=== PATIENT | female | born 1970 | race Caucasian/White ===

== ENCOUNTER 2017-04-28 10:23 | Inpatient (IN) | payer SELFPAY ==
[2017-04-28] VITALS (16 sets, daily range): BP systolic 92–152; BP diastolic 50–79; PULSE 89–126; RESP 18–35; TEMP 36.9–38; O2SAT 85–98; BMI 30.9; BMI 31.4; BMI 31.5
--- NOTE | 2017-04-28 10:58 | EKG12_ITS ---
Test Reason : SOB CP Blood Pressure : / mmHG Vent. Rate : 122 BPM Atrial Rate : 122 BPM P-R Int : 150 ms QRS Dur : 074 ms QT Int : 298 ms P-R-T Axes : 082 252 063 degrees QTc Int : 424 ms Sinus tachycardia Low voltage QRS (LIMB LEADS) Biatrial enlargement Septal infarct , age undetermined Abnormal ECG Confirmed by BEL MARTINO, ANKUSH ([id number]), senior editor REYMUNDO LOZA ([id number] on 04/30/2017 10:14:41 AM Referred By: BAILEY Confirmed By:ANKUSH STAPLES MD
--- NOTE | 2017-04-28 11:00 | RAD_ITS ---
STUDY: X-RAY CHEST REASON FOR EXAM: Female, 46 years old. Coughing fever. TECHNIQUE: AP and lateral views of the chest. COMPARISON: None. FINDINGS: EKG electrodes are seen. The lungs are clear and expanded. There is no demonstrated pleural abnormality. Normal size heart. Normal mediastinum and marisa. Normal visualized pulmonary arteries. Normal visualized aortic arch and descending thoracic aorta. There are degenerative changes of the visualized thoracic spine. Normal visualized ribs, clavicles, and shoulders. There is no demonstrated abnormality of the visualized soft tissue structures of the upper abdomen. RAD/Chest PA and Lateral IMPRESSION: No acute abnormality is seen. Electronically Signed: Du Amaya MD at 11:23 EST Tel [phone], Service support ,
[2017-04-28] MEDS: Ipratropium/Albuterol Sulfate 3 ML AMPUL.NEB INHALATION ×4 (11:09→21:59)
[2017-04-28] MEDS: Albuterol 2.5 MG/3 ML VIAL.NEB. INHALATION ×2 (11:14→11:36)
[2017-04-28 11:16] LABS: Absolute Lymphocyte Count 0.84 X10^3/ul (0.83-4.51); Basophil# 0.02 X10^3/uL; Basophil% 0.3 % (0-1); Hemoglobin 14.7 g/dl (12.0-15.0); Lymphocyte # 0.84 X10^3/ul (4.0); Lymphocyte % 12.8 % (19-41); Mean Corp Hgb Conc 34.2 g/gl (32-36); Mean Corpuscular Volume 93.7 fL (81-99); Mean Platelet Vol. 10.4 fl (6.2-12.0); Monocyte# 0.68 X10^3/uL; Monocyte% 10.4 % (0-10); Neutrophil # 5.02 X10^3/uL (2.7-7.7); Neutrophil % 76.5 % (47-70); POSITIVE COUNT NO; POSITIVE DIFFERENTIAL NO; POSITIVE MORPHOLOGY NO; Platelet Count 192 K/mm3 (150-450); RBC Distribution Width CV 13.4 % (11.6-14.6); RBC Distribution Width SD 44.7 fl (35.1-43.9); Red Blood Count 4.59 M/mm3 (4.2-5.4); White Blood Count 6.6 K/mm3 (4.4-11.0)
--- NOTE | 2017-04-28 11:26 | CPS ---
PT BACK FROM RADIOLOGY. 6LPM NASAL CANNULA WITH SATURATION 98%. PT DECREASED TO 4 LPM WITH SATURATION 94%. DUONEB X 1 AND ALBUTEROL X1 ADMINISTERED UPON RETURN TO ROOM. BS WHEEZES PRE AND POST.
[2017-04-28] MEDS: 0.9% Normal Saline 1,000 ML 999 ML IV (11:27)
[2017-04-28] MEDS: MethylPREDNISolone 125 MG/2 ML Vial IV (11:27)
[2017-04-28 11:28] LABS: Anion Gap 9 (5-15); BUN 8 mg/dL (7-18); BUN/Creat Ratio 12.9 RATIO (10-20); Calcium,Total 8.7 mg/dL (8.5-10.1); Chloride 98 mmol/L (98-107); Creatinine, Serum 0.62 mg/dL (0.55-1.02); EST Glomerular Filtration Rate 111 mL/min (>60); Est Glom Filt Rate - Afr Amer 134 mL/min (>60); Estimated Creatinine Clearance 98.95 ml/min; Glucose 111 mg/dL (74-106); Sodium Level 131 mmol/L (136-145)
--- NOTE | 2017-04-28 12:13 | ED.VISSUMM ---
- ER Visit Summary Date of Service: 04/28/17 Chief Complaint: Cough, wheezing and shortness of breath. History of Present Illness: The patient is a 46 F smoker with past medical history of cervical cancer which she underwent chemo and radiation. A 3 day history of cough and fever. Fever as high as 103. Is been recently had pneumonia. Prior history of DVT or PE. No travel or surgery. No hemoptysis. No leg pain or swelling. Physical Examination: Middle-aged female. Vital signs stable except is hypoxic without O2 in the mid 80s. Her heart rate 125 and temperature 99.9. HEENT exam unremarkable. Neck nontender no lymphadenopathy. Lungs coarse breath sounds bilaterally. Patient wheezing throughout. He has a diminished in both bases. Heart tachycardic no murmur. Abdomen is soft. Mild tenderness left upper quadrant. Normal bowel sounds no peritoneal signs. No signs of trauma. She states her abdomen is tender secondary in all the coughing she has done. She is moving all 4 extremities. Neurovascular intact. Calves are nontender without edema or cords. Neurologically she is awake and alert without focal motor deficits. Test Results: Chest x-ray portable one view shows no acute abnormality read both myself the radiologist. Normal cardiac silhouette. No infiltrate. EKG sinus tachycardia without any signs of acute HI. White count of 6. H&H 1443. Electrolytes unremarkable and sodium 131. Normal creatinine and normal gap. Troponin normal. Lactic acid 1.0. Emergency Department Course and Treatment: Treated with DuoNeb and Proventil aerosols. 125 Solu-Medrol. On repeat exam she is doing better but still wheezing and still hypoxic without oxygen. She will not be able to be discharged home. I have the hospitalist on page for admission. Influenza study is pending. Treatment Plan: Admission for repeat aerosols and continued steroids. Disposition: Admission Impression: Acute viral URI with bronchospasm and hypoxia This note was generated with [employer] dictation software. It may contain incorrect words, spelling, and punctuation that were not noted in review of the chart prior to signing ED Disposition - Plan for ED Patient: Chief Complaint: Fever Referrals: Joana Esqueda MD [Primary Care Provider] -
--- NOTE | 2017-04-28 12:17 | ED.DCSUM_ITS ---
- ER Visit Summary Date of Service: 04/28/17 Chief Complaint: Cough, wheezing and shortness of breath. History of Present Illness: The patient is a 46 F smoker with past medical history of cervical cancer which she underwent chemo and radiation. A 3 day history of cough and fever. Fever as high as 103. Is been recently had pneumonia. Prior history of DVT or PE. No travel or surgery. No hemoptysis. No leg pain or swelling. Physical Examination: Middle-aged female. Vital signs stable except is hypoxic without O2 in the mid 80s. Her heart rate 125 and temperature 99.9. HEENT exam unremarkable. Neck nontender no lymphadenopathy. Lungs coarse breath sounds bilaterally. Patient wheezing throughout. He has a diminished in both bases. Heart tachycardic no murmur. Abdomen is soft. Mild tenderness left upper quadrant. Normal bowel sounds no peritoneal signs. No signs of trauma. She states her abdomen is tender secondary in all the coughing she has done. She is moving all 4 extremities. Neurovascular intact. Calves are nontender without edema or cords. Neurologically she is awake and alert without focal motor deficits. Test Results: Chest x-ray portable one view shows no acute abnormality read both myself the radiologist. Normal cardiac silhouette. No infiltrate. EKG sinus tachycardia without any signs of acute ND. White count of 6. H&H 1443. Electrolytes unremarkable and sodium 131. Normal creatinine and normal gap. Troponin normal. Lactic acid 1.0. Emergency Department Course and Treatment: Treated with DuoNeb and Proventil aerosols. 125 Solu-Medrol. On repeat exam she is doing better but still wheezing and still hypoxic without oxygen. She will not be able to be discharged home. I have the hospitalist on page for admission. Influenza study is pending. Treatment Plan: Admission for repeat aerosols and continued steroids. Disposition: Admission Impression: Acute viral URI with bronchospasm and hypoxia This note was generated with [employer] dictation software. It may contain incorrect words, spelling, and punctuation that were not noted in review of the chart prior to signing ED Disposition - Plan for ED Patient: Chief Complaint: Fever Referrals: Joana Esqueda MD [Primary Care Provider] -
[2017-04-28] MEDS: Acetaminophen 500 MG Tablet 1000 MG PO (12:42)
--- NOTE | 2017-04-28 12:59 | HP.PCM_ITS ---
Problem List (1) COPD exacerbation Status: Acute (2) URI (upper respiratory infection) Status: Acute (3) Chronic nicotine dependence Status: Chronic (4) CA cervix Status: Chronic History of Present Illness Date of Admission: 04/28/17 Chief Complaint: Shortness of breath and fever for 3 days The patient is a 46 year old F with history of chronic smoker came to ER with progressive worsening of shortness of breath, cough, wheezing and fever 103 Fahrenheit at home. Patient's is recently diagnosed of pneumonia last [place], just completed 3 days of Zithromax is feeling better. Patient also has grand child which is suffering from flu and has been exposed to her and the grandchild. Patient has been smoking since her 24 years of age about a pack per day. In ED, she was found tachycardic, heart rate 126/min, T-max 100.4 Fahrenheit, respiratory rate 28/min and hypoxic 94% on 4 L of oxygen. Chest x-ray reported as normal; lungs are clear and expanded. [] Past Medical History Past Medical History (Chronic Problems): Chronic Problems Chronic nicotine dependence (Chronic) CA cervix (Chronic) Allergies silicone Adverse Reaction (Verified 01/02/15 06:36) Nausea/Vom/Diarrhea Home Medications: Ambulatory Orders Medication Instructions Recorded NK [NK] 04/28/17 Smoking Status: Current every day smoker - *Family History Paternal History Items: No pertinent history Review of Systems Constitutional: Reports: Anorexia, Chills, Fever, Malaise, Weakness HEENT: Reports: Sinus Congestion, Sore Throat. Denies: Head Aches, Sinus Drainage Cardiovascular: Denies: Chest Pain, Palpitations Respiratory: Reports: Cough, Shortness of Breath, Shortness of breath at rest. Denies: Sputum production Gastrointestinal: Denies: Abdominal Pain, Nausea, Vomiting Genitourinary: Denies: Dysuria Musculoskeletal: Denies: Joint Pain, Joint Tenderness Skin: Denies: Rash, Wounds Neurological: Denies: Numbness, Tingling, Focal weakness Psychiatric: Denies: Anxiety, Depression, Homicidal Ideations, Suicidal Ideations Hematologic/ Lymphatic: Denies: Easy Bruising, Easy Bleeding VTE Information - Inpt Only VTE Present on Admission: No VTE Mechan Device Prophylaxis: SCD's VTE Pharm Prophylaxis ordered?: Yes Patient Problems: Active and Suspected Problems COPD exacerbation (Acute) URI (upper respiratory infection) (Acute) - Physical Exam General: Alert, Oriented x3, Cooperative, - - very sick HEENT: Atraumatic, PERRLA, EOMI, Normocephalic Oral: Dry Mucosa Neck: Supple, No JVD, Negative Carotid Bruits Lungs: Diminished, Rhonchi, Short of Breath, Tachypneic, Using Accessory Muscles , Wheezes Cardiovascular: Regular Rhythm, Normal S1, Normal S2, No murmurs, Tachycardic Abdomen: Bowel Sounds Present, Soft, Non Tender, Non-Distended Extremities: No edema, Capillary Refill Less than 3 Seconds Skin: No rashes, No breakdown Musculoskeletal: No Tenderness to Palpation of Joints or Extremities Neurological: Cranial nerves II-XII grossly intact Psych/Mental Status: Normal Affect, Appropriate Vital Signs Temp Pulse Resp BP Pulse Ox 100.4 F H 116 H 29 H 118/75 93 04/28/17 12:34 04/28/17 12:34 04/28/17 12:34 04/28/17 12:34 04/28/17 12:34 Assessment/Plan Active and Suspected Problems COPD exacerbation (Acute) URI (upper respiratory infection) (Acute) The patient is a 46 year old F with history of chronic smoker came to ER with progressive worsening of shortness of breath, cough, wheezing and fever 103 Fahrenheit at home. Patient's is recently diagnosed of pneumonia last Wednesday, just completed 3 days of Zithromax is feeling better. Patient also has grand child which is suffering from flu and has been exposed to her and the grandchild. Patient has been smoking since her 24 years of age about a pack per day. In ED, she was found tachycardic, heart rate 126/min, T-max 100.4 Fahrenheit, respiratory rate 28/min and hypoxic 94% on 4 L of oxygen. Chest x-ray reported as normal; lungs are clear and expanded. 1. SIRS (tachycardia, tachypnea, hypoxia) most rarely from sepsis due to clinical pneumonia or URI/acute tracheobronchitis: The patient is being admitted on the regular floor. Started empirically on IV Rocephin and Zithromax. Even though, nasal swab for influenza is negative but its sensitivity and specifically low and clinical suspicion is high because of exposure, therefore started on Tamiflu. Strep throat culture and respiratory panel ordered. Blood cultures ?2 and sputum culture ordered. 2. Acute hypoxic respiratory failure most probably from COPD exacerbation/ clinical pneumonia: Oxygen therapy. ABG ordered for baseline PCO2. 3. Most probably undiagnosed COPD/emphysema with acute exacerbation due to acute bronchitis: On bronchodilator, IV Solu-Medrol, oxygen therapy, incentive spirometry and chest physiotherapy. 4. Chronic smoker: On nicotine patch. Smoking cessation counseling done. 5. Ca cervix status post chemoradiation: Patient completed chemotherapy and radiation and is scheduled for surgery. Mild obesity, grade 1: Weight loss counseling done. DVT prophylaxis on Lovenox and bilateral SCDs. Microbiology Past 72 Hours 04/28/17 11:40 Mucosa - Nose Influenza Types A,B Direct FA (MARTIN) - Final Laboratory Results 04/28/17 10:50: WBC 6.6, RBC 4.59, Hgb 14.7, Hct 43.0, MCV 93.7, MCH 32.0, MCHC 34.2, RDW 13.4, RDW Differential 44.7 H, Plt Count 192, MPV 10.4, Immature Gran % (Auto) 0.000, Neut % (Auto) 76.5 H, Lymph % (Auto) 12.8 L, [place] % (Auto) 10.4 H, Eos % (Auto) 0.0, Baso % (Auto) 0.3, Absolute Neuts (auto) 5.0, Absolute Lymphs (auto) 0.84, Total Counted Not Reportable 04/28/17 10:50: Sodium 131 L, Potassium 4.0, Chloride 98, Carbon Dioxide 24.0, Anion Gap 9, BUN 8, Creatinine 0.62, Estim Creat Clear Calc 98.95, Est GFR (MDRD ) Af Amer 134, Est GFR (MDRD) Non-Af 111, BUN/Creatinine Ratio 12.9, Glucose 111 H, Calcium 8.7, Troponin I < 0.02 04/28/17 10:50: Lactic Acid 1.0 Clinical Impression(s) from Imaging Studies Chest X-Ray 04/28/17 11:00 IMPRESSION: No acute abnormality is seen. Electronically Signed: Du Amaya MD at 11:23 EST Tel [phone], Service support , Code Visit Inpatient E&M: [id number] Init Hosp L3
[2017-04-28 15:46] LABS: Base Excess -2 mmol/L (-2 to +2); Bicarbonate 23.7 mmol/L (22-26); Blood Gas Specimen Type ART; O2 Delivery Device Nasal Can; PO2 71 mmHG (75-100); SITE R Radial; SO2 94 % (95-99); Time Given 1545; Total Carbon Dioxide 25 mmol/L; pCO2 40.3 mmHg (35-45); pH 7.38 (7.35-7.45)
[2017-04-28] MEDS: Ceftriaxone 1 GM/50 ML BAG IV (16:00)
[2017-04-28] MEDS: 0.9% Normal Saline 1,000 ML 75 ML IV (16:03)
[2017-04-28] MEDS: Benzonatate 100 MG Capsule 200 MG PO ×2 (16:04→22:09)
[2017-04-28] MEDS: Oseltamivir Phosphate 75 MG Capsule PO ×2 (16:04→22:09)
[2017-04-28] MEDS: Enoxaparin 40 MG/0.4 ML Syringe SC (16:04)
[2017-04-28 16:23] LABS: BNP,B-Type NATRIURETIC PEPTIDE 14.6 pg/mL (0-100)
[2017-04-28] MEDS: guaiFENesin 1,200 MG Tablet 1200 MG PO (22:08)
[2017-04-29] VITALS (15 sets, daily range): BP systolic 93–117; BP diastolic 54–75; PULSE 72–103; RESP 18–20; TEMP 36.2–37.1; O2SAT 93–96
[2017-04-29] MEDS: Benzonatate 100 MG Capsule 200 MG PO ×3 (05:19→21:51)
[2017-04-29] MEDS: Enoxaparin 40 MG/0.4 ML Syringe SC (05:20)
[2017-04-29] MEDS: 0.9% Normal Saline 1,000 ML 75 ML IV (05:20)
[2017-04-29] MEDS: Albuterol 2.5 MG/3 ML VIAL.NEB. INHALATION (05:28)
[2017-04-29 06:08] LABS: Absolute Lymphocyte Count 0.88 X10^3/ul (0.83-4.51); Absolute Neutrophil Count 7.1 X10^3/uL (2.0-7.7); Basophil# 0.01 X10^3/uL; Basophil% 0.1 % (0-1); Hematocrit 39.5 % (37-47); Hemoglobin 13.5 g/dl (12.0-15.0); Lymphocyte # 0.88 X10^3/ul (4.0); Lymphocyte % 10.5 % (19-41); Mean Corp Hgb Conc 34.2 g/gl (32-36); Mean Corpuscular Hgb 32.3 pg (27.0-32.0); Mean Corpuscular Volume 94.5 fL (81-99); Mean Platelet Vol. 10.2 fl (6.2-12.0); Monocyte# 0.38 X10^3/uL; Monocyte% 4.5 % (0-10); Neutrophil # 7.12 X10^3/uL (2.7-7.7); Neutrophil % 84.8 % (47-70); Platelet Count 186 K/mm3 (150-450); RBC Distribution Width CV 13.3 % (11.6-14.6); RBC Distribution Width SD 44.7 fl (35.1-43.9); Red Blood Count 4.18 M/mm3 (4.2-5.4); White Blood Count 8.4 K/mm3 (4.4-11.0)
[2017-04-29 06:09] LABS: POSITIVE COUNT NO; POSITIVE DIFFERENTIAL NO; POSITIVE MORPHOLOGY NO
[2017-04-29 06:33] LABS: ALB/GLOB Ratio 0.9 RATIO (0.9-2.4); AST(SGOT) 20 U/L (15-37); Alanine Aminotransfer ALT/SGPT 24 U/L (13-56); Albumin, Serum 3.4 g/dL (3.2-5.0); Alkaline Phosphatase 74 U/L (45-117); Anion Gap 7 (5-15); BUN 9 mg/dL (7-18); BUN/Creat Ratio 15.1 RATIO (10-20); Chloride 104 mmol/L (98-107); EST Glomerular Filtration Rate 116 mL/min (>60); Est Glom Filt Rate - Afr Amer 140 mL/min (>60); Estimated Creatinine Clearance 102.25 ml/min; Globulin 3.6 g/dL (2.2-4.2); Glucose 141 mg/dL (74-106); Potassium 4.5 mmol/L (3.5-5.1); Sodium Level 138 mmol/L (136-145)
[2017-04-29] MEDS: Ipratropium/Albuterol Sulfate 3 ML AMPUL.NEB INHALATION ×4 (06:48→20:20)
--- NOTE | 2017-04-29 09:20 | PCM.PN.HOSP ---
Patient Problems: Active and Suspected Problems COPD exacerbation (Acute) URI (upper respiratory infection) (Acute) Subjective: Patient is short of breath, wheezing and diarrhea. She is feeling better than yesterday. She is also tearful and I think she has significant amount of anxiety. She also has a history of on and off diarrhea with abdominal cramps, I think she has IBS. Stool for leucocytes and C. difficile ordered. Vitals/I&O's: Vital Signs Temp Pulse Resp BP Pulse Ox 98.8 F 86 20 H 109/69 93 04/29/17 06:54 04/29/17 06:54 04/29/17 06:54 04/29/17 06:54 04/29/17 06:54 Oxygen Flow Rate 4 Oxygen Delivery Method Nasal Cannula Weight: 183 lb 6.793 oz Body Mass Index (BMI) 31.4 Intake and Output for Last 24 Hours 04/27/17 04/28/17 04/29/17 23:59 23:59 23:59 Intake Total 1500 / 1500 Output Total 400 / 400 Balance 1100 / 1100 General: Alert, Oriented x3, Cooperative HEENT: Atraumatic, PERRLA, EOMI, Normocephalic Oral: Dry Mucosa Neck: Supple, No JVD, Negative Carotid Bruits Lungs: No rales, Diminished, Rhonchi, Short of Breath Cardiovascular: Regular rate, Regular Rhythm, Normal S1, Normal S2, No murmurs Abdomen: Bowel Sounds Present, Soft, Non Tender, Non-Distended Extremities: No edema, Capillary Refill Less than 3 Seconds Skin: No rashes, No breakdown Musculoskeletal: No Tenderness to Palpation of Joints or Extremities Neurological: Cranial nerves II-XII grossly intact Psych/Mental Status: Normal Affect, Appropriate Microbiology Past 72 Hours 04/29/17 06:10 Urine, Clean Catch Streptococcus pneumoniae Antigen (M - Final 04/28/17 22:20 Mucosa - Throat Group A Streptococcus Rapid Screen - Preliminary Laboratory Results 04/28/17 15:41: Specimen Type ART, Sample Site R Radial, pH 7.38, Bicarbonate Actual 23.7, POC Total CO2 25, Base Excess -2, O2 Saturation 94 L, ABG pCO2 40.3, ABG pO2 71 L, O2 Delivery Device Nasal Can, Liter Flow 4.0, Blood Gas Notified Whom ALFA MARTINO, Blood Gas Notified Time 1540 04/29/17 05:50: WBC 8.4, RBC 4.18 L, Hgb 13.5, Hct 39.5, MCV 94.5, MCH 32.3 H, MCHC 34.2, RDW 13.3, RDW Differential 44.7 H, Plt Count 186, MPV 10.2, Immature Gran % (Auto) 0.100, Neut % (Auto) 84.8 H, Lymph % (Auto) 10.5 L, [place] % (Auto) 4.5, Eos % (Auto) 0.0, Baso % (Auto) 0.1, Absolute Neuts (auto) 7.1, Absolute Lymphs (auto) 0.88, Total Counted Not Reportable 04/29/17 05:50: Sodium 138, Potassium 4.5, Chloride 104, Carbon Dioxide 27.0, Anion Gap 7, BUN 9, Creatinine 0.60, Estim Creat Clear Calc 102.25, Est GFR (MDRD) Af Amer 140, Est GFR (MDRD) Non-Af 116, BUN/Creatinine Ratio 15.1, Glucose 141 H, Calcium 9.0, Total Bilirubin 0.40, AST 20, ALT 24, Alkaline Phosphatase 74, Total Protein 7.0, Albumin 3.4, Globulin 3.6, Albumin/Globulin Ratio 0.9 Current Medications Acetaminophen (Tylenol) 650 mg PO Q6H PRN PRN PRN Reason: Mild Pain (scale 0-3)/T>100.7 Al Hydroxide/Mg Hydroxide (Mylanta Ii) 30 ml PO Q6H PRN PRN PRN Reason: Gastric Burning Albuterol Sulfate (Ventolin Aerosols) 2.5 mg INHALATION Q2H PRN PRN PRN Reason: SHORTNESS OF BREATH Last Admin: 04/29/17 05:28 Dose: 2.5 mg Albuterol/Ipratropium (Duoneb) 3 ml INHALATION Q4HWA.RT DELIA Last Admin: 04/29/17 06:48 Dose: 3 ml Benzonatate (Tessalon Perle) 200 mg PO TID [facility] Last Admin: 04/29/17 05:19 Dose: 200 mg Bisacodyl (Dulcolax) 10 mg RECTAL DAILY PRN PRN PRN Reason: Constipation Docusate Sodium (Colace) 200 mg PO BID PRN PRN PRN Reason: Constipation Enoxaparin Sodium (Lovenox) 40 mg SC DAILY@0600 [facility] Last Admin: 04/29/17 05:20 Dose: 40 mg Guaifenesin (Mucinex) 1,200 mg PO BID [facility] Last Admin: 04/28/17 22:08 Dose: 1,200 mg Sodium Chloride () 1,000 mls @ 75 mls/hr IV .[id number] [facility] Last Admin: 04/29/17 05:20 Dose: 75 mls/hr Azithromycin 500 mg/ Dextrose 255 mls @ 250 mls/hr IV Q24 [facility] Stop: 04/30/17 11:02 Last Admin: 04/28/17 17:21 Dose: 250 mls/hr Ceftriaxone Sodium (Rocephin) 1 gm in 50 mls @ 100 mls/hr IV Q24 [facility] Last Admin: 04/28/17 16:00 Dose: 100 mls/hr Methylprednisolone (Solu-Medrol) 40 mg IV Q8 [facility] Last Admin: 04/29/17 05:20 Dose: 40 mg Morphine Sulfate (Morphine) 1 - 2 mg IV Q4H PRN PRN PRN Reason: SEVERE PAIN (6-10/10) Nicotine (Nicoderm Cq (Pbkc)) 21 mg TRANSDERM. DAILY [facility] Last Admin: 04/28/17 16:21 Dose: 21 mg Ondansetron HCl (Zofran) 4 mg IV Q8H PRN PRN PRN Reason: Nausea Oseltamivir Phosphate (Tamiflu) 75 mg PO BID [facility] Stop: 05/02/17 22:01 Last Admin: 04/28/17 22:09 Dose: 75 mg Oxycodone HCl (Oxyir) 5 mg PO Q4H PRN PRN PRN Reason: Moderate Pain (pain scale 4-5) Sodium Chloride () 5 - 30 ml IV UD PRN PRN Reason: SALINE FLUSH Zolpidem Tartrate (Ambien (Generic)) 5 mg PO QHS PRN PRN PRN Reason: INSOMNIA Assessment/Plan Active and Suspected Problems COPD exacerbation (Acute) URI (upper respiratory infection) (Acute) The patient is a 46 year old F with history of chronic smoker came to ER with progressive worsening of shortness of breath, cough, wheezing and fever 103 Fahrenheit at home. Patient's is recently diagnosed of pneumonia last Wednesday, just completed 3 days of Zithromax is feeling better. Patient also has grand child which is suffering from flu and has been exposed to her and the grandchild. Patient has been smoking since her 24 years of age about a pack per day. In ED, she was found tachycardic, heart rate 126/min, T-max 100.4 Fahrenheit, respiratory rate 28/min and hypoxic 94% on 4 L of oxygen. Chest x-ray reported as normal; lungs are clear and expanded. 1. SIRS (tachycardia, tachypnea, hypoxia) most probably from sepsis due to clinical pneumonia or URI/acute tracheobronchitis: The patient is being admitted on the regular floor. Started empirically on IV Rocephin and Zithromax. Even though, nasal swab for influenza is negative but its sensitivity and specifically low and clinical suspicion is high because of exposure, therefore started on Tamiflu. Strep throat screen is negative but respiratory panel is positive of influenza A, subtype H1. Blood cultures ?2 and sputum culture ordered. Chest x-ray PA and lateral ordered for tomorrow. 2. Acute hypoxic respiratory failure most probably from COPD exacerbation/clinical pneumonia: Oxygen therapy. ABG ordered for baseline PCO2. 3. Most probably undiagnosed COPD/emphysema with acute exacerbation due to acute bronchitis: On bronchodilator, IV Solu-Medrol, oxygen therapy, incentive spirometry and chest physiotherapy. 4. Chronic smoker: On nicotine patch. Smoking cessation counseling done. Anxiety and panic attack with mild withdrawal from chronic nicotine dependence on nicotine patch. Xanax 0.5 mg twice daily as needed Alteration of bowel habit, diarrhea, possible IBS: Stool for C. difficile and leukocytes ordered as the patient is on antibiotic too. 5. Ca cervix status post chemoradiation: Patient completed chemotherapy and radiation and is scheduled for surgery. Mild obesity, grade 1: Weight loss counseling done. DVT prophylaxis on Lovenox and bilateral SCDs. Clinical Impression(s) from Imaging Studies Chest X-Ray 04/28/17 11:00 IMPRESSION: No acute abnormality is seen. Electronically Signed: Du Amaya MD at 11:23 EST Tel [phone], Service support , Microbiology Past 72 Hours 04/28/17 22:20 Mucosa - Throat Group A Streptococcus Rapid Screen - Preliminary 04/28/17 15:20 Mucosa - Nose Respiratory Panel (PCR) - Final Influenza A (Subtype H1) 04/29/17 06:10 Urine, Clean Catch Streptococcus pneumoniae Antigen (M - Final 04/28/17 11:40 Mucosa - Nose Influenza Types A,B Direct FA (MARTIN) - Final Laboratory Results 04/28/17 10:50: B-Natriuretic Peptide 14.6 04/28/17 15:41: Specimen Type ART, Sample Site R Radial, pH 7.38, Bicarbonate Actual 23.7, POC Total CO2 25, Base Excess -2, O2 Saturation 94 L, ABG pCO2 40.3, ABG pO2 71 L, O2 Delivery Device Nasal Can, Liter Flow 4.0, Blood Gas Notified Whom HOSP , Blood Gas Notified Time 1545 04/29/17 05:50: WBC 8.4, RBC 4.18 L, Hgb 13.5, Hct 39.5, MCV 94.5, MCH 32.3 H, MCHC 34.2, RDW 13.3, RDW Differential 44.7 H, Plt Count 186, MPV 10.2, Immature Gran % (Auto) 0.100, Neut % (Auto) 84.8 H, Lymph % (Auto) 10.5 L, [place] % (Auto) 4.5, Eos % (Auto) 0.0, Baso % (Auto) 0.1, Absolute Neuts (auto) 7.1, Absolute Lymphs (auto) 0.88, Total Counted Not Reportable 04/29/17 05:50: Sodium 138, Potassium 4.5, Chloride 104, Carbon Dioxide 27.0, Anion Gap 7, BUN 9, Creatinine 0.60, Estim Creat Clear Calc 102.25, Est GFR (MDRD) Af Amer 140, Est GFR (MDRD) Non-Af 116, BUN/Creatinine Ratio 15.1, Glucose 141 H, Calcium 9.0, Total Bilirubin 0.40, AST 20, ALT 24, Alkaline Phosphatase 74, Total Protein 7.0, Albumin 3.4, Globulin 3.6, Albumin/Globulin Ratio 0.9 Code Visit Inpatient E&M: 72827 Subs Hosp L3
--- NOTE | 2017-04-29 09:23 | PN_ITS ---
Patient Problems: Active and Suspected Problems COPD exacerbation (Acute) URI (upper respiratory infection) (Acute) Subjective: Patient is short of breath, wheezing and diarrhea. She is feeling better than yesterday. She is also tearful and I think she has significant amount of anxiety. She also has a history of on and off diarrhea with abdominal cramps, I think she has IBS. Stool for leucocytes and C. difficile ordered. Vitals/I&O's: Vital Signs Temp Pulse Resp BP Pulse Ox 98.8 F 86 20 H 109/69 93 04/29/17 06:54 04/29/17 06:54 04/29/17 06:54 04/29/17 06:54 04/29/17 06:54 Oxygen Flow Rate 4 Oxygen Delivery Method Nasal Cannula Weight: 183 lb 6.793 oz Body Mass Index (BMI) 31.4 Intake and Output for Last 24 Hours 04/27/17 04/28/17 04/29/17 23:59 23:59 23:59 Intake Total 1500 / 1500 Output Total 400 / 400 Balance 1100 / 1100 General: Alert, Oriented x3, Cooperative HEENT: Atraumatic, PERRLA, EOMI, Normocephalic Oral: Dry Mucosa Neck: Supple, No JVD, Negative Carotid Bruits Lungs: No rales, Diminished, Rhonchi, Short of Breath Cardiovascular: Regular rate, Regular Rhythm, Normal S1, Normal S2, No murmurs Abdomen: Bowel Sounds Present, Soft, Non Tender, Non-Distended Extremities: No edema, Capillary Refill Less than 3 Seconds Skin: No rashes, No breakdown Musculoskeletal: No Tenderness to Palpation of Joints or Extremities Neurological: Cranial nerves II-XII grossly intact Psych/Mental Status: Normal Affect, Appropriate Microbiology Past 72 Hours 04/29/17 06:10 Urine, Clean Catch Streptococcus pneumoniae Antigen (M - Final 04/28/17 22:20 Mucosa - Throat Group A Streptococcus Rapid Screen - Preliminary Laboratory Results 04/28/17 15:41: Specimen Type ART, Sample Site R Radial, pH 7.38, Bicarbonate Actual 23.7, POC Total CO2 25, Base Excess -2, O2 Saturation 94 L, ABG pCO2 40.3 , ABG pO2 71 L, O2 Delivery Device Nasal Can, Liter Flow 4.0, Blood Gas Notified Whom ALFA MARTINO, Blood Gas Notified Time 1543 04/29/17 05:50: WBC 8.4, RBC 4.18 L, Hgb 13.5, Hct 39.5, MCV 94.5, MCH 32.3 H, MCHC 34.2, RDW 13.3, RDW Differential 44.7 H, Plt Count 186, MPV 10.2, Immature Gran % (Auto) 0.100, Neut % (Auto) 84.8 H, Lymph % (Auto) 10.5 L, [place] % (Auto) 4.5, Eos % (Auto) 0.0, Baso % (Auto) 0.1, Absolute Neuts (auto) 7.1, Absolute Lymphs (auto) 0.88, Total Counted Not Reportable 04/29/17 05:50: Sodium 138, Potassium 4.5, Chloride 104, Carbon Dioxide 27.0, Anion Gap 7, BUN 9, Creatinine 0.60, Estim Creat Clear Calc 102.25, Est GFR ( MDRD) Af Amer 140, Est GFR (MDRD) Non-Af 116, BUN/Creatinine Ratio 15.1, Glucose 141 H, Calcium 9.0, Total Bilirubin 0.40, AST 20, ALT 24, Alkaline Phosphatase 74, Total Protein 7.0, Albumin 3.4, Globulin 3.6, Albumin/Globulin Ratio 0.9 Current Medications Acetaminophen (Tylenol) 650 mg PO Q6H PRN PRN PRN Reason: Mild Pain (scale 0-3)/T>100.7 Al Hydroxide/Mg Hydroxide (Mylanta Ii) 30 ml PO Q6H PRN PRN PRN Reason: Gastric Burning Albuterol Sulfate (Ventolin Aerosols) 2.5 mg INHALATION Q2H PRN PRN PRN Reason: SHORTNESS OF BREATH Last Admin: 04/29/17 05:28 Dose: 2.5 mg Albuterol/Ipratropium (Duoneb) 3 ml INHALATION Q4HWA.RT [facility] Last Admin: 04/29/17 06:48 Dose: 3 ml Benzonatate (Tessalon Perle) 200 mg PO TID [facility] Last Admin: 04/29/17 05:19 Dose: 200 mg Bisacodyl (Dulcolax) 10 mg RECTAL DAILY PRN PRN PRN Reason: Constipation Docusate Sodium (Colace) 200 mg PO BID PRN PRN PRN Reason: Constipation Enoxaparin Sodium (Lovenox) 40 mg SC DAILY@0600 [facility] Last Admin: 04/29/17 05:20 Dose: 40 mg Guaifenesin (Mucinex) 1,200 mg PO BID [facility] Last Admin: 04/28/17 22:08 Dose: 1,200 mg Sodium Chloride () 1,000 mls @ 75 mls/hr IV .[id number] [facility] Last Admin: 04/29/17 05:20 Dose: 75 mls/hr Azithromycin 500 mg/ Dextrose 255 mls @ 250 mls/hr IV Q24 [facility] Stop: 04/30/17 11:02 Last Admin: 04/28/17 17:21 Dose: 250 mls/hr Ceftriaxone Sodium (Rocephin) 1 gm in 50 mls @ 100 mls/hr IV Q24 [facility] Last Admin: 04/28/17 16:00 Dose: 100 mls/hr Methylprednisolone (Solu-Medrol) 40 mg IV Q8 [facility] Last Admin: 04/29/17 05:20 Dose: 40 mg Morphine Sulfate (Morphine) 1 - 2 mg IV Q4H PRN PRN PRN Reason: SEVERE PAIN (6-10/10) Nicotine (Nicoderm Cq (Pbkc)) 21 mg TRANSDERM. DAILY [facility] Last Admin: 04/28/17 16:21 Dose: 21 mg Ondansetron HCl (Zofran) 4 mg IV Q8H PRN PRN PRN Reason: Nausea Oseltamivir Phosphate (Tamiflu) 75 mg PO BID [facility] Stop: 05/02/17 22:01 Last Admin: 04/28/17 22:09 Dose: 75 mg Oxycodone HCl (Oxyir) 5 mg PO Q4H PRN PRN PRN Reason: Moderate Pain (pain scale 4-5) Sodium Chloride () 5 - 30 ml IV UD PRN PRN Reason: SALINE FLUSH Zolpidem Tartrate (Ambien (Generic)) 5 mg PO QHS PRN PRN PRN Reason: INSOMNIA Assessment/Plan Active and Suspected Problems COPD exacerbation (Acute) URI (upper respiratory infection) (Acute) The patient is a 46 year old F with history of chronic smoker came to ER with progressive worsening of shortness of breath, cough, wheezing and fever 103 Fahrenheit at home. Patient's is recently diagnosed of pneumonia last Wednesday, just completed 3 days of Zithromax is feeling better. Patient also has grand child which is suffering from flu and has been exposed to her and the grandchild. Patient has been smoking since her 24 years of age about a pack per day. In ED, she was found tachycardic, heart rate 126/min, T-max 100.4 Fahrenheit, respiratory rate 28/min and hypoxic 94% on 4 L of oxygen. Chest x-ray reported as normal; lungs are clear and expanded. 1. SIRS (tachycardia, tachypnea, hypoxia) most probably from sepsis due to clinical pneumonia or URI/acute tracheobronchitis: The patient is being admitted on the regular floor. Started empirically on IV Rocephin and Zithromax. Even though, nasal swab for influenza is negative but its sensitivity and specifically low and clinical suspicion is high because of exposure, therefore started on Tamiflu. Strep throat screen is negative but respiratory panel is positive of influenza A, subtype H1. Blood cultures ?2 and sputum culture ordered. Chest x-ray PA and lateral ordered for tomorrow. 2. Acute hypoxic respiratory failure most probably from COPD exacerbation/ clinical pneumonia: Oxygen therapy. ABG ordered for baseline PCO2. 3. Most probably undiagnosed COPD/emphysema with acute exacerbation due to acute bronchitis: On bronchodilator, IV Solu-Medrol, oxygen therapy, incentive spirometry and chest physiotherapy. 4. Chronic smoker: On nicotine patch. Smoking cessation counseling done. Anxiety and panic attack with mild withdrawal from chronic nicotine dependence on nicotine patch. Xanax 0.5 mg twice daily as needed Alteration of bowel habit, diarrhea, possible IBS: Stool for C. difficile and leukocytes ordered as the patient is on antibiotic too. 5. Ca cervix status post chemoradiation: Patient completed chemotherapy and radiation and is scheduled for surgery. Mild obesity, grade 1: Weight loss counseling done. DVT prophylaxis on Lovenox and bilateral SCDs. Clinical Impression(s) from Imaging Studies Chest X-Ray 04/28/17 11:00 IMPRESSION: No acute abnormality is seen. Electronically Signed: Du Amaya MD at 11:23 EST Tel [phone], Service support , Microbiology Past 72 Hours 04/28/17 22:20 Mucosa - Throat Group A Streptococcus Rapid Screen - Preliminary 04/28/17 15:20 Mucosa - Nose Respiratory Panel (PCR) - Final Influenza A (Subtype H1) 04/29/17 06:10 Urine, Clean Catch Streptococcus pneumoniae Antigen (M - Final 04/28/17 11:40 Mucosa - Nose Influenza Types A,B Direct FA (MARTIN) - Final Laboratory Results 04/28/17 10:50: B-Natriuretic Peptide 14.6 04/28/17 15:41: Specimen Type ART, Sample Site R Radial, pH 7.38, Bicarbonate Actual 23.7, POC Total CO2 25, Base Excess -2, O2 Saturation 94 L, ABG pCO2 40.3 , ABG pO2 71 L, O2 Delivery Device Nasal Can, Liter Flow 4.0, Blood Gas Notified Whom [facility]OSP , Blood Gas Notified Time 1545 04/29/17 05:50: WBC 8.4, RBC 4.18 L, Hgb 13.5, Hct 39.5, MCV 94.5, MCH 32.3 H, MCHC 34.2, RDW 13.3, RDW Differential 44.7 H, Plt Count 186, MPV 10.2, Immature Gran % (Auto) 0.100, Neut % (Auto) 84.8 H, Lymph % (Auto) 10.5 L, [place] % (Auto) 4.5, Eos % (Auto) 0.0, Baso % (Auto) 0.1, Absolute Neuts (auto) 7.1, Absolute Lymphs (auto) 0.88, Total Counted Not Reportable 04/29/17 05:50: Sodium 138, Potassium 4.5, Chloride 104, Carbon Dioxide 27.0, Anion Gap 7, BUN 9, Creatinine 0.60, Estim Creat Clear Calc 102.25, Est GFR ( MDRD) Af Amer 140, Est GFR (MDRD) Non-Af 116, BUN/Creatinine Ratio 15.1, Glucose 141 H, Calcium 9.0, Total Bilirubin 0.40, AST 20, ALT 24, Alkaline Phosphatase 74, Total Protein 7.0, Albumin 3.4, Globulin 3.6, Albumin/Globulin Ratio 0.9 Code Visit Inpatient E&M: 44949 Subs Hosp L3
[2017-04-29] MEDS: Oseltamivir Phosphate 75 MG Capsule PO ×2 (10:16→21:51)
[2017-04-29] MEDS: guaiFENesin 1,200 MG Tablet 1200 MG PO ×2 (10:16→21:51)
[2017-04-29] MEDS: Ceftriaxone 1 GM/50 ML BAG IV (10:19)
[2017-04-29] MEDS: Acetaminophen 325 MG Tablet 650 MG PO ×2 (10:34→19:57)
[2017-04-29] MEDS: oxyCODONE 5 MG Tablet PO ×2 (10:34→19:58)
--- NOTE | 2017-04-29 13:08 | NURSING ---
PT VERY ANXIOUS, REQUESTING TO TAKE A WALK. AFTER TALKING, PT SAID THAT SHE WANTED A W/C SO HER SON COULD TAKE HER OUTSIDE TO SMOKE. EXPLAINED THAT SHE HAS BEEN ON 4L O2 AND HERE FOR COPD, REMOVING THE O2 AND GOING OUT TO SMOKE WAS NOT ADVISABLE WELL NOT PERMITTED. TOLE HER I WOULD TRY TO GET SOMETHING ORDERED FOR ANXIETY BECAUSE SHE STATED SHE WAS ABOUT READY TO JUST LEAVE SO SHE COULD SMOKE. SHE WAS AGREEABLE TO TRYING SOMETHING FOR ANXIETY. DR ROLAND WAS NOTIFIED AND ORDERS RECEIVED.
--- NOTE | 2017-04-29 13:31 | CASEMGMT ---
DC PLAN: home. Intro role of CM to patient in room. She is anxious because she wants to smoke. discussed smoking cessation. RN CHUYITA told pt to consider that while being in hospital she was getting through the difficult part of quitting smoking. Pt laughed and stated, yeah that's not happening. -No home needs identified. -Discussed self pay status. Pt states [facility] gave her HCAP form and she will see them after discharge. Pt states she is part of [facility] financial assistance program and her physician visits are free. Pt states she does not have difficulty getting medications. Asked if she has considered applying for [facility]. She states she is not interested at this time, as she works with [facility]. No further needs identified @ this time. Michelle AWADN RN ACM
[2017-04-29] MEDS: ALPRAZolam 0.5 MG Tablet PO ×2 (14:48→21:54)
[2017-04-29] MEDS: 0.9% Normal Saline 1,000 ML 100 ML IV ×2 (14:49→19:51)
[2017-04-29] MEDS: Ondansetron 4 MG/2 ML Vial IV (19:58)
[2017-04-29] MEDS: 0.9% NaCl Peripheral Flush Adult/Peds IV ×2 (19:59→21:54)
[2017-04-29] MEDS: Zolpidem Tartrate 5 MG Tablet PO (22:50)
[2017-04-30] VITALS (13 sets, daily range): BP systolic 96–123; BP diastolic 58–91; PULSE 66–92; RESP 16–24; TEMP 35.8–36.4; O2SAT 89–99
[2017-04-30] MEDS: Albuterol 2.5 MG/3 ML VIAL.NEB. INHALATION ×2 (03:30→09:32)
[2017-04-30] MEDS: Benzonatate 100 MG Capsule 200 MG PO (05:10)
[2017-04-30] MEDS: Acetaminophen 325 MG Tablet 650 MG PO (05:10)
[2017-04-30] MEDS: oxyCODONE 5 MG Tablet PO ×4 (05:10→21:56)
[2017-04-30] MEDS: Enoxaparin 40 MG/0.4 ML Syringe SC (05:15)
[2017-04-30] MEDS: 0.9% NaCl Peripheral Flush Adult/Peds IV (05:15)
--- NOTE | 2017-04-30 05:55 | RAD_ITS ---
STUDY: X-RAY CHEST REASON FOR EXAM: Female, 46 years old. Fever and shortness of breath. History of flu. TECHNIQUE: PA and lateral views of the chest. COMPARISON: Comparison is made with prior examination of April 28, 2017. FINDINGS: There are now is evidence of mild increased markings in the right middle lobe and lingular symptoms of the left upper lobe. Early infiltrate should be ruled out. There is no demonstrated pleural abnormality. Normal size heart. Normal mediastinum and marisa. Stable calcified bilateral hilar lymph nodes. Normal visualized aortic arch and descending thoracic aorta. There are degenerative changes of the visualized thoracic spine. Normal visualized ribs, clavicles, and shoulders. There is no demonstrated abnormality of the visualized soft tissue structures of the upper abdomen. RAD/Chest PA and Lateral IMPRESSION: Since prior study, there has been an increase in interstitial markings in the right middle lobe and lingular segment of the left upper lobe. Follow-up is recommended. Electronically Signed: Du Amaya MD at 12:30 EST Tel [phone], Service support ,
[2017-04-30] MEDS: Ipratropium/Albuterol Sulfate 3 ML AMPUL.NEB INHALATION ×4 (06:40→22:39)
[2017-04-30] MEDS: 0.9% Normal Saline 1,000 ML 100 ML IV ×2 (09:07→21:06)
[2017-04-30] MEDS: ALPRAZolam 0.5 MG Tablet PO (09:18)
[2017-04-30] MEDS: Oseltamivir Phosphate 75 MG Capsule PO ×2 (09:24→21:03)
[2017-04-30] MEDS: guaiFENesin 600 MG Tablet PO ×2 (10:33→21:03)
[2017-04-30] MEDS: Ceftriaxone 1 GM/50 ML BAG IV (10:33)
[2017-04-30] MEDS: guaiFENesin/Codeine 5 ML UDC 10 ML PO ×4 (10:33→21:05)
--- NOTE | 2017-04-30 10:58 | CASEMGMT ---
Social Work Met with pt and in room and introduced role of SW. Pt plans to return home with her at time of d/c and spouse confirmed he is able to assist as needed upon return home. SW discussed feelings of anxiety with pt. Pt stating that anxiety is something that she deals with on an ongoing basis however anxiety seems worse since in the hospital. Pt states she does not take anti anxiety medication at home but is currently receiving it and it has been helpful. SW attempted to review anxiety concerns with pt and offer support. Pt is currently self pay status. SW asked pt if she would be interested in filling out Medicaid application to assist with hospital expenses. Pt states that she usually uses the [facility] system and has a director case there that has been assisting with financial concerns and will assist her with financial issues once she returns home. Pt denies further needs at this time. LUISA Curiel
--- NOTE | 2017-04-30 11:20 | CASEMGMT ---
Addendum entered by Luis Eduardo Albert 04/30/17 12:00: RC BOOGIE spoke with pt and her re: possibility for home oxygen. Pt appears much calmer, asked questions and was agreeable to [facility] self pay if needed. Discussed that goal is to go home without need for Home O2 and testing would be completed on day of discharge. Green sheet is on chart if needed and called to [facility], name given to [facility] rep in case weekend dc is needed- verified cost to be $157.00 due on delivery which can be paid via check or credit card. Original Note: Pt currently on 3L [place]. Home oxygen testing in computer for day of dc if needed to evaluate for Home O2. Pt is self pay. [facility] [phone] has locally lowest self pay rate of $145 per month plus tanks: $22 refill for e-tanks (larger tanks to pull with pt) or $6.00 refill for shoulder tanks. They recommend 2 portable tanks (either e-tank or smaller shoulder tank). One month cost needs paid up front. -RC BOOGIE called to Sukhdev HAWLEY CM @ [facility]. Care Managers are not involved with her care, however pt is active with [facility] financial counselors ([phone]). Oxygen needs are not part of the financial assistance provided so pt would be self-pay. -Deferred this conversation with patient as she is having significant anxiety at this time. SW is speaking with pt. If home O2 needed, will need to address at that time. Michelle BERRIOS RN AC
--- NOTE | 2017-04-30 16:35 | PCM.PN.HOSP ---
Patient Problems: Active and Suspected Problems COPD exacerbation (Acute) URI (upper respiratory infection) (Acute) Subjective: Patient is still short of breath, persistent dry cough that made her awake all night yesterday. She is wheezing Wants more stronger medication for cough. She also has severe anxiety and panic. Vitals/I&O's: Vital Signs Temp Pulse Resp BP Pulse Ox 97.6 F L 77 18 105/66 94 04/30/17 14:50 04/30/17 14:50 04/30/17 14:50 04/30/17 14:50 04/30/17 14:50 Oxygen Flow Rate 2 Oxygen Delivery Method Nasal Cannula Weight: 183 lb 6.793 oz Body Mass Index (BMI) 31.4 Intake and Output for Last 24 Hours 04/28/17 04/29/17 04/30/17 23:59 23:59 23:59 Intake Total 1500 / 1500 4611 / 4611 Output Total 1000 / 1000 Balance 500 / 500 4611 / 4611 General: Alert, Oriented x3, Cooperative HEENT: Atraumatic, PERRLA, EOMI, Normocephalic Neck: Supple, No JVD, Negative Carotid Bruits Lungs: Diminished, Rhonchi, Wheezes Cardiovascular: Regular rate, No murmurs Abdomen: Bowel Sounds Present, Soft, Non Tender, Non-Distended Extremities: No edema, Capillary Refill Less than 3 Seconds Skin: No rashes, No breakdown Musculoskeletal: No Tenderness to Palpation of Joints or Extremities Neurological: Cranial nerves II-XII grossly intact Psych/Mental Status: Anxious, Restless Microbiology Past 72 Hours 04/29/17 21:46 Sputum, Expectorated/Coughed Gram Stain - Final 04/29/17 21:46 Sputum, Expectorated/Coughed Respiratory Culture - Preliminary Culture exhibits no growth. 04/28/17 22:20 Mucosa - Throat Group A Streptococcus Rapid Screen - Final 04/28/17 15:20 Mucosa - Nose Respiratory Panel (PCR) - Final Influenza A (Subtype H1) 04/29/17 06:10 Urine, Clean Catch Streptococcus pneumoniae Antigen (M - Final Current Medications Acetaminophen (Tylenol) 650 mg PO Q6H PRN PRN PRN Reason: Mild Pain (scale 0-3)/T>100.7 Last Admin: 04/30/17 05:10 Dose: 650 mg Al Hydroxide/Mg Hydroxide (Mylanta Ii) 30 ml PO Q6H PRN PRN PRN Reason: Gastric Burning Albuterol Sulfate (Ventolin Aerosols) 2.5 mg INHALATION Q2H PRN PRN PRN Reason: SHORTNESS OF BREATH Last Admin: 04/30/17 09:32 Dose: 2.5 mg Albuterol/Ipratropium (Duoneb) 3 ml INHALATION Q4HWA.RT [facility] Last Admin: 04/30/17 13:18 Dose: 3 ml Alprazolam (Xanax) 0.5 mg PO TID PRN PRN Reason: ANXIETY Last Admin: 04/30/17 09:18 Dose: 0.5 mg Docusate Sodium (Colace) 200 mg PO BID PRN PRN PRN Reason: Constipation Enoxaparin Sodium (Lovenox) 40 mg SC DAILY@0600 [facility] Last Admin: 04/30/17 05:15 Dose: 40 mg Guaifenesin (Mucinex) 600 mg PO BID [facility] Last Admin: 04/30/17 10:33 Dose: 600 mg Guaifenesin/Codeine Phosphate (Robitussin Ac) 10 ml PO Q4HWA [facility] Last Admin: 04/30/17 14:53 Dose: 10 ml Ceftriaxone Sodium (Rocephin) 1 gm in 50 mls @ 100 mls/hr IV Q24 [facility] Last Admin: 04/30/17 10:33 Dose: 100 mls/hr Sodium Chloride () 1,000 mls @ 100 mls/hr IV .Q10H [facility] Last Admin: 04/30/17 09:07 Dose: 100 mls/hr Methylprednisolone (Solu-Medrol) 40 mg IV Q6 [facility] Last Admin: 04/30/17 12:00 Dose: 40 mg Morphine Sulfate (Morphine) 1 - 2 mg IV Q4H PRN PRN PRN Reason: SEVERE PAIN (6-10/10) Nicotine (Nicoderm Cq (Pbkc)) 21 mg TRANSDERM. DAILY [facility] Last Admin: 04/30/17 09:23 Dose: 21 mg Ondansetron HCl (Zofran) 4 mg IV Q8H PRN PRN PRN Reason: Nausea Last Admin: 04/29/17 19:58 Dose: 4 mg Oseltamivir Phosphate (Tamiflu) 75 mg PO BID [facility] Stop: 05/02/17 22:01 Last Admin: 04/30/17 09:24 Dose: 75 mg Oxycodone HCl (Oxyir) 5 mg PO Q4H PRN PRN PRN Reason: Moderate Pain (pain scale 4-5) Last Admin: 04/30/17 15:00 Dose: 5 mg Sodium Chloride () 5 - 30 ml IV UD PRN PRN Reason: SALINE FLUSH Last Admin: 04/30/17 05:15 Dose: 10 ml Trazodone HCl (Desyrel) 50 mg PO QHS PRN PRN Reason: ANXIETY/INSOMNIA Zolpidem Tartrate (Ambien (Generic)) 5 mg PO QHS PRN PRN PRN Reason: INSOMNIA Last Admin: 04/29/17 22:50 Dose: 5 mg Assessment/Plan Active and Suspected Problems COPD exacerbation (Acute) URI (upper respiratory infection) (Acute) The patient is a 46 year old F with history of chronic smoker came to ER with progressive worsening of shortness of breath, cough, wheezing and fever 103 Fahrenheit at home. Patient's is recently diagnosed of pneumonia last Wednesday, just completed 3 days of Zithromax is feeling better. Patient also has grand child which is suffering from flu and has been exposed to her and the grandchild. Patient has been smoking since her 24 years of age about a pack per day. In ED, she was found tachycardic, heart rate 126/min, T-max 100.4 Fahrenheit, respiratory rate 28/min and hypoxic 94% on 4 L of oxygen. Chest x-ray reported as normal; lungs are clear and expanded. 1. SIRS (tachycardia, tachypnea, hypoxia) most probably from sepsis due to clinical pneumonia or URI/acute tracheobronchitis: The patient is being admitted on the regular floor. Started empirically on IV Rocephin and Zithromax continued. Even though, nasal swab for influenza is negative but its sensitivity and specifically low and clinical suspicion is high because of exposure, therefore started on Tamiflu. Strep throat screen is negative but respiratory panel is positive of influenza A, subtype H1. Blood cultures ?2 and sputum culture ordered. All the first chest x-ray reported as no acute abnormality but repeat chest x-ray today shows increased interstitial markings in the right middle lobe and lingular segments of left upper lobe with suspicion of early infiltrate and follow-up recommended. 2. Acute hypoxic respiratory failure most probably from COPD exacerbation/clinical pneumonia: Oxygen therapy. 3. Most probably undiagnosed COPD/emphysema with acute exacerbation due to acute bronchitis: On bronchodilator, IV Solu-Medrol, oxygen therapy, incentive spirometry and chest physiotherapy. Started on Robitussin-AC. Solu-Medrol frequency increased. ABG shows 7.38/40/71 on 4 L of oxygen nasal cannula. Shows minimally high Aa gradient but normal CO2 4. Chronic smoker: On nicotine patch. Smoking cessation counseling done. Nicotine patch Anxiety and panic attack with mild withdrawal from chronic nicotine dependence on nicotine patch. Xanax 0.5 mg 3 times daily as needed. On trazodone Alteration of bowel habit, diarrhea, possible IBS: Stool for C. difficile and leukocytes ordered as the patient is on antibiotic too. 5. Ca cervix status post chemoradiation: Patient completed chemotherapy and radiation and is scheduled for surgery. Mild obesity, grade 1: Weight loss counseling done. DVT prophylaxis on Lovenox and bilateral SCDs. Clinical Impression(s) from Imaging Studies Chest X-Ray 04/28/17 11:00 IMPRESSION: No acute abnormality is seen. Electronically Signed: Du Amaya MD at 11:23 EST Tel [phone], Service support , Chest X-Ray 04/30/17 05:55 IMPRESSION: Since prior study, there has been an increase in interstitial markings in the right middle lobe and lingular segment of the left upper lobe. Follow-up is recommended. Electronically Signed: Du Amaya MD at 12:30 EST Tel [phone], Service support , Microbiology Past 72 Hours 04/29/17 21:46 Sputum, Expectorated/Coughed Gram Stain - Final 04/29/17 21:46 Sputum, Expectorated/Coughed Respiratory Culture - Preliminary Culture exhibits no growth. 04/28/17 22:20 Mucosa - Throat Group A Streptococcus Rapid Screen - Final 04/28/17 11:12 Blood Culture (Wb) #2 - Anticubital Left Blood Culture - Preliminary No growth in 48 hours. 04/28/17 10:50 Blood Culture (Wb) - Anticubital Right Blood Culture - Preliminary No growth in 48 hours. 04/28/17 15:20 Mucosa - Nose Respiratory Panel (PCR) - Final Influenza A (Subtype H1) 04/29/17 06:10 Urine, Clean Catch Streptococcus pneumoniae Antigen (M - Final 04/28/17 11:40 Mucosa - Nose Influenza Types A,B Direct FA (MARTIN) - Final Code Visit Inpatient E&M: 70325 Subs Hosp L3
--- NOTE | 2017-04-30 16:42 | PN_ITS ---
Patient Problems: Active and Suspected Problems COPD exacerbation (Acute) URI (upper respiratory infection) (Acute) Subjective: Patient is still short of breath, persistent dry cough that made her awake all night yesterday. She is wheezing Wants more stronger medication for cough. She also has severe anxiety and panic. Vitals/I&O's: Vital Signs Temp Pulse Resp BP Pulse Ox 97.6 F L 77 18 105/66 94 04/30/17 14:50 04/30/17 14:50 04/30/17 14:50 04/30/17 14:50 04/30/17 14:50 Oxygen Flow Rate 2 Oxygen Delivery Method Nasal Cannula Weight: 183 lb 6.793 oz Body Mass Index (BMI) 31.4 Intake and Output for Last 24 Hours 04/28/17 04/29/17 04/30/17 23:59 23:59 23:59 Intake Total 1500 / 1500 4611 / 4611 Output Total 1000 / 1000 Balance 500 / 500 4611 / 4611 General: Alert, Oriented x3, Cooperative HEENT: Atraumatic, PERRLA, EOMI, Normocephalic Neck: Supple, No JVD, Negative Carotid Bruits Lungs: Diminished, Rhonchi, Wheezes Cardiovascular: Regular rate, No murmurs Abdomen: Bowel Sounds Present, Soft, Non Tender, Non-Distended Extremities: No edema, Capillary Refill Less than 3 Seconds Skin: No rashes, No breakdown Musculoskeletal: No Tenderness to Palpation of Joints or Extremities Neurological: Cranial nerves II-XII grossly intact Psych/Mental Status: Anxious, Restless Microbiology Past 72 Hours 04/29/17 21:46 Sputum, Expectorated/Coughed Gram Stain - Final 04/29/17 21:46 Sputum, Expectorated/Coughed Respiratory Culture - Preliminary Culture exhibits no growth. 04/28/17 22:20 Mucosa - Throat Group A Streptococcus Rapid Screen - Final 04/28/17 15:20 Mucosa - Nose Respiratory Panel (PCR) - Final Influenza A (Subtype H1) 04/29/17 06:10 Urine, Clean Catch Streptococcus pneumoniae Antigen (M - Final Current Medications Acetaminophen (Tylenol) 650 mg PO Q6H PRN PRN PRN Reason: Mild Pain (scale 0-3)/T>100.7 Last Admin: 04/30/17 05:10 Dose: 650 mg Al Hydroxide/Mg Hydroxide (Mylanta Ii) 30 ml PO Q6H PRN PRN PRN Reason: Gastric Burning Albuterol Sulfate (Ventolin Aerosols) 2.5 mg INHALATION Q2H PRN PRN PRN Reason: SHORTNESS OF BREATH Last Admin: 04/30/17 09:32 Dose: 2.5 mg Albuterol/Ipratropium (Duoneb) 3 ml INHALATION Q4HWA.RT [facility] Last Admin: 04/30/17 13:18 Dose: 3 ml Alprazolam (Xanax) 0.5 mg PO TID PRN PRN Reason: ANXIETY Last Admin: 04/30/17 09:18 Dose: 0.5 mg Docusate Sodium (Colace) 200 mg PO BID PRN PRN PRN Reason: Constipation Enoxaparin Sodium (Lovenox) 40 mg SC DAILY@0600 [facility] Last Admin: 04/30/17 05:15 Dose: 40 mg Guaifenesin (Mucinex) 600 mg PO BID [facility] Last Admin: 04/30/17 10:33 Dose: 600 mg Guaifenesin/Codeine Phosphate (Robitussin Ac) 10 ml PO Q4HWA [facility] Last Admin: 04/30/17 14:53 Dose: 10 ml Ceftriaxone Sodium (Rocephin) 1 gm in 50 mls @ 100 mls/hr IV Q24 [facility] Last Admin: 04/30/17 10:33 Dose: 100 mls/hr Sodium Chloride () 1,000 mls @ 100 mls/hr IV .Q10H [facility] Last Admin: 04/30/17 09:07 Dose: 100 mls/hr Methylprednisolone (Solu-Medrol) 40 mg IV Q6 [facility] Last Admin: 04/30/17 12:00 Dose: 40 mg Morphine Sulfate (Morphine) 1 - 2 mg IV Q4H PRN PRN PRN Reason: SEVERE PAIN (6-10/10) Nicotine (Nicoderm Cq (Pbkc)) 21 mg TRANSDERM. DAILY [facility] Last Admin: 04/30/17 09:23 Dose: 21 mg Ondansetron HCl (Zofran) 4 mg IV Q8H PRN PRN PRN Reason: Nausea Last Admin: 04/29/17 19:58 Dose: 4 mg Oseltamivir Phosphate (Tamiflu) 75 mg PO BID [facility] Stop: 05/02/17 22:01 Last Admin: 04/30/17 09:24 Dose: 75 mg Oxycodone HCl (Oxyir) 5 mg PO Q4H PRN PRN PRN Reason: Moderate Pain (pain scale 4-5) Last Admin: 04/30/17 15:00 Dose: 5 mg Sodium Chloride () 5 - 30 ml IV UD PRN PRN Reason: SALINE FLUSH Last Admin: 04/30/17 05:15 Dose: 10 ml Trazodone HCl (Desyrel) 50 mg PO QHS PRN PRN Reason: ANXIETY/INSOMNIA Zolpidem Tartrate (Ambien (Generic)) 5 mg PO QHS PRN PRN PRN Reason: INSOMNIA Last Admin: 04/29/17 22:50 Dose: 5 mg Assessment/Plan Active and Suspected Problems COPD exacerbation (Acute) URI (upper respiratory infection) (Acute) The patient is a 46 year old F with history of chronic smoker came to ER with progressive worsening of shortness of breath, cough, wheezing and fever 103 Fahrenheit at home. Patient's is recently diagnosed of pneumonia last Wednesday, just completed 3 days of Zithromax is feeling better. Patient also has grand child which is suffering from flu and has been exposed to her and the grandchild. Patient has been smoking since her 24 years of age about a pack per day. In ED, she was found tachycardic, heart rate 126/min, T-max 100.4 Fahrenheit, respiratory rate 28/min and hypoxic 94% on 4 L of oxygen. Chest x-ray reported as normal; lungs are clear and expanded. 1. SIRS (tachycardia, tachypnea, hypoxia) most probably from sepsis due to clinical pneumonia or URI/acute tracheobronchitis: The patient is being admitted on the regular floor. Started empirically on IV Rocephin and Zithromax continued. Even though, nasal swab for influenza is negative but its sensitivity and specifically low and clinical suspicion is high because of exposure, therefore started on Tamiflu. Strep throat screen is negative but respiratory panel is positive of influenza A, subtype H1. Blood cultures ?2 and sputum culture ordered. All the first chest x-ray reported as no acute abnormality but repeat chest x- ray today shows increased interstitial markings in the right middle lobe and lingular segments of left upper lobe with suspicion of early infiltrate and follow-up recommended. 2. Acute hypoxic respiratory failure most probably from COPD exacerbation/ clinical pneumonia: Oxygen therapy. 3. Most probably undiagnosed COPD/emphysema with acute exacerbation due to acute bronchitis: On bronchodilator, IV Solu-Medrol, oxygen therapy, incentive spirometry and chest physiotherapy. Started on Robitussin-AC. Solu-Medrol frequency increased. ABG shows 7.38/40/71 on 4 L of oxygen nasal cannula. Shows minimally high Aa gradient but normal CO2 4. Chronic smoker: On nicotine patch. Smoking cessation counseling done. Nicotine patch Anxiety and panic attack with mild withdrawal from chronic nicotine dependence on nicotine patch. Xanax 0.5 mg 3 times daily as needed. On trazodone Alteration of bowel habit, diarrhea, possible IBS: Stool for C. difficile and leukocytes ordered as the patient is on antibiotic too. 5. Ca cervix status post chemoradiation: Patient completed chemotherapy and radiation and is scheduled for surgery. Mild obesity, grade 1: Weight loss counseling done. DVT prophylaxis on Lovenox and bilateral SCDs. Clinical Impression(s) from Imaging Studies Chest X-Ray 04/28/17 11:00 IMPRESSION: No acute abnormality is seen. Electronically Signed: Du Amaya MD at 11:23 EST Tel [phone], Service support , Chest X-Ray 04/30/17 05:55 IMPRESSION: Since prior study, there has been an increase in interstitial markings in the right middle lobe and lingular segment of the left upper lobe. Follow-up is recommended. Electronically Signed: Du Amaya MD at 12:30 EST Tel [phone], Service support , Microbiology Past 72 Hours 04/29/17 21:46 Sputum, Expectorated/Coughed Gram Stain - Final 04/29/17 21:46 Sputum, Expectorated/Coughed Respiratory Culture - Preliminary Culture exhibits no growth. 04/28/17 22:20 Mucosa - Throat Group A Streptococcus Rapid Screen - Final 04/28/17 11:12 Blood Culture (Wb) #2 - Anticubital Left Blood Culture - Preliminary No growth in 48 hours. 04/28/17 10:50 Blood Culture (Wb) - Anticubital Right Blood Culture - Preliminary No growth in 48 hours. 04/28/17 15:20 Mucosa - Nose Respiratory Panel (PCR) - Final Influenza A (Subtype H1) 04/29/17 06:10 Urine, Clean Catch Streptococcus pneumoniae Antigen (M - Final 04/28/17 11:40 Mucosa - Nose Influenza Types A,B Direct FA (MARTIN) - Final Code Visit Inpatient E&M: 95975 Subs Hosp L3
[2017-04-30] MEDS: Ondansetron 4 MG/2 ML Vial IV (21:56)
[2017-05-01] VITALS (8 sets, daily range): BP systolic 100–126; BP diastolic 62–81; PULSE 60–82; RESP 18–20; TEMP 36.1–36.4; O2SAT 88–95
[2017-05-01] MEDS: Zolpidem Tartrate 5 MG Tablet PO (00:09)
[2017-05-01] MEDS: 0.9% NaCl Peripheral Flush Adult/Peds IV ×2 (00:10→05:46)
[2017-05-01] MEDS: oxyCODONE 5 MG Tablet PO ×2 (05:49→10:45)
[2017-05-01] MEDS: guaiFENesin/Codeine 5 ML UDC 10 ML PO ×3 (05:49→14:58)
[2017-05-01] MEDS: Enoxaparin 40 MG/0.4 ML Syringe SC (05:50)
[2017-05-01] MEDS: 0.9% Normal Saline 1,000 ML 100 ML IV (06:10)
[2017-05-01] MEDS: Ipratropium/Albuterol Sulfate 3 ML AMPUL.NEB INHALATION ×2 (07:08→11:24)
[2017-05-01] MEDS: guaiFENesin 600 MG Tablet PO (10:45)
[2017-05-01] MEDS: Oseltamivir Phosphate 75 MG Capsule PO (10:45)
[2017-05-01] MEDS: levoFLOXacin 500 MG Tablet PO (10:45)
--- NOTE | 2017-05-01 11:54 | PCM.DC ---
- Discharge Diagnoses Current Active Problems: Current Active and Chronic Problems COPD exacerbation (Acute) URI (upper respiratory infection) (Acute) Chronic nicotine dependence (Chronic) CA cervix (Chronic) You will use the following diet at home:: Regular Discharge Activity: May not drive while taking narcotic pain medications. Allergies/Adverse Reactions: Allergies desflurane Allergy (Verified 04/28/17 14:58) Anaphylaxis isoflurane Allergy (Verified 04/28/17 14:58) Anaphylaxis sevoflurane Allergy (Verified 04/28/17 14:58) Anaphylaxis succinylcholine Allergy (Verified 04/28/17 14:58) Anaphylaxis silicone Adverse Reaction (Verified 01/02/15 06:36) Nausea/Vom/Diarrhea Medications to take at Discharge ALPRAZolam [Xanax] 0.5 mg PO TID PRN #10 tablet 05/01/17 Albuterol Inhaler [Ventolin Hfa] 2 puff INHALATION Q4H PRN PRN #1 inhaler 05/01/17 Docusate Sodium [Colace] 200 mg PO BID PRN PRN capsule 05/01/17 Guaifenesin Dm [Robitussin Dm] 10 ml PO Q4H PRN PRN #1 udc 05/01/17 Guaifenesin [Mucinex] 600 mg PO BID #30 tab 05/01/17 Ipratropium/Albuterol Sulfate [Duoneb] 3 ml INHALATION Q4H PRN PRN #30 ampul.neb 05/01/17 Levofloxacin [Levaquin] 500 mg PO DAILY@0600 #6 tab 05/01/17 Nicotine [Nicoderm Cq] 21 mg TRANSDERM. DAILY #30 patch 05/01/17 Oseltamivir Phosphate [Tamiflu] 75 mg PO BID #3 cap 05/01/17 Prednisone 10 mg PO UD #30 tablet 05/01/17 The following prescriptions were given: Albuterol Inhaler [Ventolin Hfa] 2 puff INHALATION Q4H PRN PRN #1 inhaler PRN Reason: Sob &/Or Wheezing Guaifenesin Dm [Robitussin Dm] 10 ml PO Q4H PRN PRN #1 udc PRN Reason: Cough Ipratropium/Albuterol Sulfate [Duoneb] 3 ml INHALATION Q4H PRN PRN #30 ampul.neb PRN Reason: Sob &/Or Wheezing Levofloxacin [Levaquin] 500 mg PO DAILY@0600 #6 tab Nicotine [Nicoderm Cq] 21 mg TRANSDERM. DAILY #30 patch Prednisone 10 mg PO UD #30 tablet Guaifenesin [Mucinex] 600 mg PO BID #30 tab Oseltamivir Phosphate [Tamiflu] 75 mg PO BID #3 cap ALPRAZolam [Xanax] 0.5 mg PO TID PRN #10 tablet PRN Reason: ANXIETY Primary Care Physician: Joana Esqueda MD [Primary Care Provider] - Please follow up with your Primary Care Physician in: in 1-2 weeks Please Follow Up With: Vitaly López MD When: COPD, on O2 and PFT in 2 weeks.
--- NOTE | 2017-05-01 11:55 | PCM.DC.SUM ---
Discharge Date and Diagnosis - Problem List Patient Problems: Active and Suspected Problems COPD exacerbation (Acute) URI (upper respiratory infection) (Acute) Date of Admission: 04/28/17 Date of Discharge: 05/01/17 - Primary Discharge Diagnosis Active and Suspected Problems 1. SIRS (tachycardia, tachypnea, hypoxia) most probably from sepsis from right middle lobe and left upper lobe community-acquired pneumonia treated with URI/acute tracheobronchitis: 2. Acute hypoxic respiratory failure most probably from COPD exacerbation/clinical pneumonia: Oxygen therapy. Patient requires oxygen at home. 3. undiagnosed COPD/emphysema with acute exacerbation due to acute bronchitis: 4. Chronic smoker: On nicotine patch. Smoking cessation counseling done. Nicotine patch Anxiety and panic attack with mild withdrawal from chronic nicotine dependence on nicotine patch. - Secondary Discharge Diagnosis Chronic Problems Chronic nicotine dependence (Chronic) CA cervix (Chronic) Hospital Course and Treatment Summary of Care Provided: [] The patient is a 46 year old F with history of chronic smoker came to ER with progressive worsening of shortness of breath, cough, wheezing and fever 103 Fahrenheit at home. Patient's is recently diagnosed of pneumonia last Wednesday, just completed 3 days of Zithromax is feeling better. Patient also has grand child which is suffering from flu and has been exposed to her and the grandchild. Patient has been smoking since her 24 years of age about a pack per day. In ED, she was found tachycardic, heart rate 126/min, T-max 100.4 Fahrenheit, respiratory rate 28/min and hypoxic 94% on 4 L of oxygen. Chest x-ray reported as normal; lungs are clear and expanded. Seen and examined General: Alert, Oriented x3, Cooperative HEENT: Atraumatic, PERRLA, EOMI, Normocephalic Neck: Supple, No JVD, Negative Carotid Bruits Lungs: Diminished, Rhonchi, Wheezes but improved Cardiovascular: Regular rate, No murmurs Abdomen: Bowel Sounds Present, Soft, Non Tender, Non-Distended Extremities: No edema, Capillary Refill Less than 3 Seconds Skin: No rashes, No breakdown Musculoskeletal: No Tenderness to Palpation of Joints or Extremities Neurological: Cranial nerves II-XII grossly intact Psych/Mental Status: Anxious, much improved 1. SIRS (tachycardia, tachypnea, hypoxia) most probably from sepsis due to clinical pneumonia or URI/acute tracheobronchitis: The patient is being admitted on the regular floor. Started empirically on IV Rocephin and Zithromax continued. Even though, nasal swab for influenza is negative but its sensitivity and specifically low and clinical suspicion is high because of exposure, therefore started on Tamiflu. Strep throat screen is negative but respiratory panel is positive of influenza A, subtype H1. Blood cultures ?2 negative for more than 48 hours and sputum culture shows rare gram-positive cocci, probably normal scott; clinically negative All the first chest x-ray reported as no acute abnormality but repeat chest x-ray today shows increased interstitial markings in the right middle lobe and lingular segments of left upper lobe with suspicion of early infiltrate and follow-up recommended. Repeat chest x-ray after 4 weeks recommended. Recently discharged on Levaquin for 6 more days. 2. Acute hypoxic respiratory failure most probably from COPD exacerbation/clinical pneumonia: Oxygen therapy. Patient requires oxygen at home. 3. undiagnosed COPD/emphysema with acute exacerbation due to acute bronchitis: On bronchodilator, IV Solu-Medrol, oxygen therapy, incentive spirometry and chest physiotherapy. Started on Robitussin-AC. Solu-Medrol frequency increased. ABG shows 7.38/40/71 on 4 L of oxygen nasal cannula. Shows minimally high Aa gradient but normal CO2. 4. Chronic smoker: On nicotine patch. Smoking cessation counseling done. Nicotine patch Anxiety and panic attack with mild withdrawal from chronic nicotine dependence on nicotine patch. Xanax 0.5 mg 3 times daily as needed. On trazodone Alteration of bowel habit, diarrhea, possible IBS: Stool for C. difficile and leukocytes ordered as the patient is on antibiotic too. Stool for C. difficile not done. Stool lactoferrin negative. 5. Ca cervix status post chemoradiation: Patient completed chemotherapy and radiation and is scheduled for surgery. Mild obesity, grade 1: Weight loss counseling done. DVT prophylaxis on Lovenox and bilateral SCDs. Overall, patient felt better. Patient is being discharged on tapering dose of prednisone, albuterol inhaler, DuoNeb nebulization, oxygen, Tamiflu for 3 more doses, Levaquin and nicotine patch. Patient was advised to follow-up with the heavy media operator, Dr. López. Follow with PCP. 35 minutes time spent on overall discharge process including discussion with the patient and her son. Discharge Activity: May not drive while taking narcotic pain medications. Home Medications: Medications to take at Discharge ALPRAZolam [Xanax] 0.5 mg PO TID PRN #10 tablet 05/01/17 Albuterol Inhaler [Ventolin Hfa] 2 puff INHALATION Q4H PRN PRN #1 inhaler 05/01/17 Docusate Sodium [Colace] 200 mg PO BID PRN PRN capsule 05/01/17 Guaifenesin Dm [Robitussin Dm] 10 ml PO Q4H PRN PRN #1 udc 05/01/17 Guaifenesin [Mucinex] 600 mg PO BID #30 tab 05/01/17 Ipratropium/Albuterol Sulfate [Duoneb] 3 ml INHALATION Q4H PRN PRN #30 ampul.neb 05/01/17 Levofloxacin [Levaquin] 500 mg PO DAILY@0600 #6 tab 05/01/17 Nicotine [Nicoderm Cq] 21 mg TRANSDERM. DAILY #30 patch 05/01/17 Oseltamivir Phosphate [Tamiflu] 75 mg PO BID #3 cap 05/01/17 Prednisone 10 mg PO UD #30 tab 05/01/17 Following Prescrptions Were Given to Patient: Albuterol Inhaler [Ventolin Hfa] 2 puff INHALATION Q4H PRN PRN #1 inhaler PRN Reason: Sob &/Or Wheezing Guaifenesin Dm [Robitussin Dm] 10 ml PO Q4H PRN PRN #1 udc PRN Reason: Cough Ipratropium/Albuterol Sulfate [Duoneb] 3 ml INHALATION Q4H PRN PRN #30 ampul.neb PRN Reason: Sob &/Or Wheezing Levofloxacin [Levaquin] 500 mg PO DAILY@0600 #6 tab Nicotine [Nicoderm Cq] 21 mg TRANSDERM. DAILY #30 patch Prednisone 10 mg PO UD #30 tab Guaifenesin [Mucinex] 600 mg PO BID #30 tab Oseltamivir Phosphate [Tamiflu] 75 mg PO BID #3 cap ALPRAZolam [Xanax] 0.5 mg PO TID PRN #10 tablet PRN Reason: ANXIETY Primary Care Physician: Joana Esqueda MD [Primary Care Provider] - Please follow up with your Primary Care Physician in: in 1-2 weeks Please Follow Up With: Vitaly López MD When: COPD, on O2 and PFT in 2 weeks. Meaningful Use Info Meaningful Use Diagnoses (Choose all that apply): None applicable Code Visit Inpatient E&M: 80455 Disch Hosp
--- NOTE | 2017-05-01 13:09 | CASEMGMT ---
RC BOOGIE called Livier, relief charge nurse MS2, to request complete home oxygen qualification. Per Livier, patient's bedside RN spoke to patient and notified her of information that was provided on [employer], which was that patient would have to pay team driver $157 at time of delivery of oxygen, and patient is now declining set-up. RC BOOGIE requested Livier call this trimming caser if patient changes her mind and chooses to accept O2 set-up, also requested complete qualification including room air and rest and documented recovery with supplemental O2 and LPM. Livier agrees to notify this trimming caser in the event patient is agreeable to set-up.
== END 2017-05-01 15:35 | disposition home or self-care (01) | DRG 871 ==
LOC: ED 12:03 → MS2 12:45
PROVIDERS: Admitting Provider Internal Medicine; Emergency Provider Emergency Medicine; Family Provider Internal Medicine; PCP Internal Medicine; Visit Provider Internal Medicine
DX: A41.9 Sepsis, unspecified organism (principal); J18.9 Pneumonia, unspecified organism; J96.01 Acute respiratory failure with hypoxia; J44.1 Chronic obstructive pulmonary disease with (acute) exacerbation; J44.0 Chronic obstructive pulmonary disease with (acute) lower respiratory infection; F17.213 Nicotine dependence, cigarettes, with withdrawal; C53.9 Malignant neoplasm of cervix uteri, unspecified; Z92.21 Personal history of antineoplastic chemotherapy; Z92.3 Personal history of irradiation; E66.9 Obesity, unspecified; Z68.31 Body mass index [BMI] 31.0-31.9, adult; J20.9 Acute bronchitis, unspecified; F41.0 Panic disorder [episodic paroxysmal anxiety]
CPT/HCPCS: 36415; 36600; 71046; 80048; 80053; 82803; 83605; 83630; 83880; 84484; 85025; 87040; 87070; 87205; 87449; 87633; 87804; 87880; 93005; 94640; 94667; 94668; 97802; 99283; J7030; A4216; J2405

== ENCOUNTER 2018-05-15 12:13 | Inpatient (IN) | payer MEDICAID, SELFPAY ==
[2018-05-15] VITALS (15 sets, daily range): BP systolic 92–125; BP diastolic 58–71; PULSE 90–125; RESP 17–32; TEMP 36.4–37.1; O2SAT 88–97; BMI 30.2; BMI 28.8
--- NOTE | 2018-05-15 12:29 | RAD_ITS ---
STUDY: X-RAY CHEST REASON FOR EXAM: Female, 47 years old. Cough. TECHNIQUE: PA and lateral views. COMPARISON: 04/30/2017. FINDINGS: The lungs are clear and expanded. There is no demonstrated pleural abnormality. Normal size heart. Normal mediastinum and marisa. Normal visualized pulmonary arteries. Normal visualized aortic arch and descending thoracic aorta. Minimal anterior wedging of the superior endplates of T11, T12 and L1 vertebral bodies may be developmental or from remote injury. Normal visualized ribs, clavicles, and shoulders. There is no demonstrated abnormality of the visualized soft tissue structures of the upper abdomen. RAD/Chest PA and Lateral IMPRESSION: 1. Normal x-ray examination of the chest. 2. Minimal anterior wedging of the superior endplates of T11, T12 and L1 vertebral bodies may be developmental or from remote injury. 3. No interval changes when compared to 04/30/2017. Electronically Signed: Teddy Arzola MD at 12:49 EST , Service support ,
[2018-05-15 12:38] LABS: Absolute Lymphocyte Count 1.38 X10^3/ul (0.83-4.51); Absolute Neutrophil Count 12.2 X10^3/uL (2.0-7.7); Basophil# 0.03 X10^3/uL; Basophil% 0.2 % (0-1); Hematocrit 40.3 % (37-47); Hemoglobin 13.4 g/dl (12.0-15.0); Lymphocyte # 1.38 X10^3/ul (4.0); Lymphocyte % 9.1 % (19-41); Mean Corp Hgb Conc 33.3 g/gl (32-36); Mean Corpuscular Hgb 31.5 pg (27.0-32.0); Mean Corpuscular Volume 94.6 fL (81-99); Mean Platelet Vol. 10.3 fl (6.2-12.0); Monocyte% 9.9 % (0-10); Neutrophil # 12.16 X10^3/uL (2.7-7.7); Neutrophil % 80.6 % (47-70); POSITIVE COUNT NO; POSITIVE DIFFERENTIAL NO; POSITIVE MORPHOLOGY NO; Platelet Count 263 K/mm3 (150-450); RBC Distribution Width SD 44.3 fl (35.1-43.9); Red Blood Count 4.26 M/mm3 (4.2-5.4); White Blood Count 15.1 K/mm3 (4.4-11.0)
--- NOTE | 2018-05-15 13:05 | CT_ITS ---
We are attempting to reach [facility] to discuss findings. An addendum with communication details will be sent when the communication is complete. STUDY: CTA CHEST REASON FOR EXAM: Female, 47 years old. Cough. Hypoxia. COPD RADIATION DOSAGE (If Supplied By Facility): CTDIvol = ( 7.59 ) mGy, DLP = ( 363.56 ) mGycm TECHNIQUE: The examination was performed with the intravenous administration of Isovue 370 100 IV. Post-processing of the angiographic images was performed, with multiplanar reformation and 3D reconstruction. Individualized dose optimization techniques were used for this CT. COMPARISON: Chest x-ray. FINDINGS: There is limited enhancement of the main pulmonary artery and right and left pulmonary arteries. There are small diminished density filling defects of the peripheral pulmonary arteries suggesting embolism versus artifact , including coronal series 601 images 164/242 through 166/242 Normal thoracic aorta and visualized great vessels. There is no demonstrated aortic dissection. Normal heart and pericardium. Normal mediastinum. There are mildly enlarged bilateral hilar lymph nodes. Normal visualized trachea and bronchi. The lungs are well expanded. There are mildly increased diffuse interstitial septal and reticulonodular parenchymal markings. There are regions of bronchiectasis. There is right basilar atelectasis or infiltrate. Normal pleura. Normal chest wall structures. Normal osseous structures. Normal visualized upper abdomen. CT/CTA Chest W/WO Contrast IMPRESSION: Small filling defects of the pulmonary arteries with embolism versus artifact associated with suboptimal enhancement and motion. Interstitial infiltrates. Electronically Signed: Ciro Thomas MD at 14:45 EST , Service support ,
--- NOTE | 2018-05-15 13:05 | ED.DCSUM_ITS ---
- ER Visit Summary Date of Service: 05/15/18 Chief Complaint: [] Cough and shortness of breath for about 4 5 days history of ovarian cervical cancer completed chemoradiation 2 years ago History of Present Illness: The patient is a 47 F [] reports she has history of ovarian and cervical cancer she completed chemoradiation therapy 2 years ago for some reason she did not have the surgery then she indicates is scheduled to have the surgery next month she has had a cough shortness of breath for about 4 5 days, she does smoke 1 pack a day she has no history of COPD PE HI or asthma she had normal bowel bladder habits she simply states her shortness of breath intensified and she came in for evaluation she has been seen in the past for shortness of breath exact etiology was unclear but at one time she was started on an inhaler Physical Examination: [] Oxygen 90% on room air afebrile General, no distress resting comfortably HEENT is generally unremarkable The neck is supple no adenopathy Cardiovascular, regular rate and rhythm Lungs, clear bilateral some minimal scattered wheezing Abdomen, soft nontender Extremities, no clubbing cyanosis or edema Neurologic, awake alert answering questions appropriately moving all 4 extremities Test Results: [] Emergency Department Course and Treatment: [] All the above her history of shortness of breath history of cancer differentials rather extensive initial chest x-ray unremarkable white count 15 CTA , per radiology shows quite a bit of interstitial lung disease and basilar atelectasis versus infiltrate and also in 1 of the right lung regions what appears to be a small pulmonary embolism versus artifact ends ballismus certainly possible per the radiologist we spoke with, so it appears that she has some degree of underlying lung disorder and/or PE pneumonia, given all the above she was on weight-based heparin antibiotics have asked the hospital see her further management Treatment Plan: [] Disposition: [] Admit stable Impression: [] Dyspnea and room air hypoxemia, interstitial lung disease, pneumonia, pulmonary embolism This note was generated with [employer] dictation software. It may contain incorrect words, spelling, and punctuation that were not noted in review of the chart prior to signing ED Disposition - Plan for ED Patient: Referrals: Joana Esqueda MD [Primary Care Provider] -
[2018-05-15 13:12] LABS: Anion Gap 12 (5-15); BUN 9 mg/dL (7-18); BUN/Creat Ratio 13.7 RATIO (10-20); Calcium,Total 9.1 mg/dL (8.5-10.1); Chloride 98 mmol/L (98-107); Creatinine, Serum 0.66 mg/dL (0.55-1.02); EST Glomerular Filtration Rate 103 mL/min (>60); Est Glom Filt Rate - Afr Amer 125 mL/min (>60); Estimated Creatinine Clearance 84.24 ml/min; Glucose 119 mg/dL (74-106); Potassium 4.3 mmol/L (3.5-5.1); Sodium Level 136 mmol/L (136-145)
[2018-05-15] MEDS: Acetaminophen 500 MG Tablet 1000 MG PO (13:56)
[2018-05-15 13:57] LABS: Lactic Acid 1.3 mmol/L (0.4-2.0)
[2018-05-15 14:08] LABS: BNP,B-Type NATRIURETIC PEPTIDE 25.1 pg/mL (0-100)
[2018-05-15] MEDS: Ipratropium/Albuterol Sulfate 3 ML AMPUL.NEB INHALATION ×3 (14:26→22:20)
--- NOTE | 2018-05-15 14:50 | EKG12_ITS ---
Test Reason : PAIN NEAR RIBS Blood Pressure : / mmHG Vent. Rate : 113 BPM Atrial Rate : 113 BPM P-R Int : 154 ms QRS Dur : 080 ms QT Int : 310 ms P-R-T Axes : 078 133 069 degrees QTc Int : 425 ms Sinus tachycardia Right axis deviation Abnormal ECG Confirmed by NARENDRA MARTINO, ALO ([id number]), fan mail editor REYMUNDO LOZA ([id number]) on 05/16/2018 2:34:45 PM Referred By: HEBERT Confirmed By:ALO MACKEY MD
--- NOTE | 2018-05-15 14:50 | PCM.HP.STD ---
Problem List (1) Pneumonia Status: Acute Qualifiers: Pneumonia type: due to unspecified organism Laterality: unspecified laterality Lung location: unspecified part of lung Qualified Code(s): J18.9 - Pneumonia, unspecified organism (2) COPD exacerbation Status: Acute (3) Pulmonary embolism Status: Suspected Qualifiers: Pulmonary embolism type: unspecified Chronicity: unspecified (4) Ovarian cancer Status: Chronic Qualifiers: Laterality: unspecified laterality Qualified Code(s): C56.9 - Malignant neoplasm of unspecified ovary (5) Chronic nicotine dependence Status: Chronic (6) CA cervix Status: Chronic Qualifiers: Malignant neoplasm of cervix location: unspecified location Qualified Code(s): C53.9 - Malignant neoplasm of cervix uteri, unspecified History of Present Illness Date of Admission: 05/15/18 Chief Complaint: Cough, Dyspnea The patient is a 47 y/o F w/ PMHx: Obesity, Anxiety, History of Cervical and Ovarian CA s/p chemotherapy and radiation 2 years prior, Tobacco use, Suspected Chronic COPD, most recently admitted 04/28-05/01/18 w/ acute COPD exacerbation secondary to CAP/acute tracheobronchitis w/ acute influenza A infection at that time who now re-presents to the [facility] ED on 05/15/18 with history of ongoing minimally productive cough, dyspnea progressively worsening w/ oxygenation in the 90s in addition to severe pleuritic chest discomfort worse with any coughing as well as nausea with occasional emesis following coughing fits. In the ED work-up included T 98.1, heart rate 116, BP 125/70, respiratory rate 17, 80% on room air improved to 94% on 2 L nasal cannula, CBC with W BC 15.1, hemoglobin 13.4, platelet 263 with left shift, BMP with glucose 119, troponin < 0.015, BNP 25.1, chest x-ray with no acute cardiopulmonary findings were noted minimal anterior wedging of the superior endplates of T11, T12 and L1 vertebral bodies possibly development from a remote injury with no changes compared to prior, CTPA w/ small filling defects of the pulmonary arteries with embolism versus artifact associate with suboptimal enhancement and motion with interstitial infiltrates. In the ED patient administered normal saline, therapeutic Lovenox 80 mg subcu x1, DuoNeb, Tylenol, Rocephin, azithromycin. Past Medical History Past Medical History (Chronic Problems): Chronic Problems (Last Reviewed 05/04/17 @ 08:56 by Kianna Wylie) Chronic nicotine dependence (Chronic) CA cervix (Chronic) Ovarian cancer (Chronic) Tobacco dependency (Chronic) Medical History: Medical History (Last Reviewed 05/04/17 @ 08:56 by Kianna Wylie) Tobacco dependency (Chronic) F17.200 Respiratory failure (Acute) J96.90 Influenza A (Acute) J10.1 COPD with exacerbation (Acute) J44.1 Allergies desflurane Allergy (Verified 05/04/17 08:56) Anaphylaxis isoflurane Allergy (Verified 05/04/17 08:56) Anaphylaxis sevoflurane Allergy (Verified 05/04/17 08:56) Anaphylaxis succinylcholine Allergy (Verified 05/04/17 08:56) Anaphylaxis silicone Adverse Reaction (Verified 05/04/17 08:56) Nausea/Vom/Diarrhea Home Medications: Ambulatory Orders Medication Instructions Recorded NK 05/15/18 Surgical History: - - History of surgery on her kidney as a child but unclear specific intervention as well as possible surgery on her ovaries but again unclear intervention. 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 Tobacco Use: Cigarettes Alcohol: None Drugs: None - *Family History Paternal History Items: Unknown - Patient states she does not know her father's history. Maternal History Items: - - Patient notes a maternal family history of stomach cancer. Review of Systems Constitutional: Reports: Anorexia, Malaise, Weakness, Fatigue. Denies: Chills, Fever, Weight Change HEENT: Denies: Head Aches, Sinus Congestion, Sinus Drainage Cardiovascular: Reports: Chest Pain. Denies: Palpitations Respiratory: Reports: Cough, Shortness of Breath, Shortness of breath at rest, Shortness of breath upon exertion, Sputum production, Wheezing Gastrointestinal: Reports: Nausea, Vomiting. Denies: Abdominal Pain Genitourinary: Denies: Dysuria Musculoskeletal: Reports: Back Pain, Joint Pain. Denies: Joint Tenderness Skin: Denies: Rash, Wounds Neurological: Denies: Numbness, Tingling, Focal weakness Psychiatric: Denies: Anxiety, Depression, Homicidal Ideations, Suicidal Ideations Hematologic/ Lymphatic: Denies: Easy Bruising, Easy Bleeding VTE Information - Inpt Only VTE Present on Admission: No VTE Mechan Device Prophylaxis: SCD's VTE Pharm Prophylaxis ordered?: Yes Patient Problems: Active and Suspected Problems (Last Reviewed 05/04/17 @ 08:56 by Kianna Wylie) Pneumonia (Acute) COPD exacerbation (Acute) Pulmonary embolism (Suspected) Subjective: Seated upright in ED bed, fatigued and ill-appearing, occasional coughing, grabs her chest when she coughs. Objective: Physical Examination: General: awake, alert, oriented x 3 and cooperative, seated upright in the ED bed, fatigued, ill-appearing. Skin: normal color, turgor, no icterus, cyanosis. HEENT: AT/NC, EOMI, PERRLA, dry MM, no carotid bruits or JVD noted. Lungs: Severely diminished throughout, greater bases, and expiratory wheezing, rhonchorous, coughing fits, holding chest secondary to pleuritic discomfort. Heart: Mildly tachycardic with regular rhythm; no gallop, rub audible. Abdomen: soft, obese, NTTP, ND, normal BS, no HSM. Extremities: no cyanosis, clubbing, or edema. Neurological: patient awake, alert, oriented x 3; cognitive function intact; pupils equally reactive to light and accomodation; cranial nerves II-XII grossly normal, moving all 4 extremities, no focal deficits, strength severely globally decreased secondary to acute presentation. Psychiatric: affect appears fatigued, no acute evidence of depressive or anxiety feelings. - Physical Exam Vital Signs Temp Pulse Resp BP Pulse Ox 97.6 F L 106 H 28 H 105/71 94 05/15/18 13:57 05/15/18 13:57 05/15/18 13:57 05/15/18 13:57 05/15/18 13:57 Oxygen Flow Rate (L/min) 2 Oxygen Delivery Method Nasal Cannula Weight: 165 lb Body Mass Index (BMI) 30.2 Laboratory Tests Past 24 Hrs 05/15/18 05/15/18 05/15/18 12:26 12:26 12:26 WBC 15.1 H RBC 4.26 Hgb 13.4 Hct 40.3 MCV 94.6 MCH 31.5 MCHC 33.3 RDW 13.0 RDW Differential 44.3 H Plt Count 263 MPV 10.3 Immature Gran % (Auto) 0.200 Neut % (Auto) 80.6 H Lymph % (Auto) 9.1 L Day % (Auto) 9.9 Eos % (Auto) 0.0 Baso % (Auto) 0.2 Absolute Neuts (auto) 12.2 H Absolute Lymphs (auto) 1.38 Total Counted Not Reportable Sodium 136 Potassium 4.3 Chloride 98 Carbon Dioxide 26.0 Anion Gap 12 BUN 9 Creatinine 0.66 Estim Creat Clear Calc 84.24 Est GFR (MDRD) Af Amer 125 Est GFR (MDRD) Non-Af 103 BUN/Creatinine Ratio 13.7 Glucose 119 H Lactic Acid Calcium 9.1 Troponin I < 0.015 B-Natriuretic Peptide 05/15/18 05/15/18 12:26 12:26 WBC RBC Hgb Hct MCV MCH MCHC RDW RDW Differential Plt Count MPV Immature Gran % (Auto) Neut % (Auto) Lymph % (Auto) Day % (Auto) Eos % (Auto) Baso % (Auto) Absolute Neuts (auto) Absolute Lymphs (auto) Total Counted Sodium Potassium Chloride Carbon Dioxide Anion Gap BUN Creatinine Estim Creat Clear Calc Est GFR (MDRD) Af Amer Est GFR (MDRD) Non-Af BUN/Creatinine Ratio Glucose Lactic Acid 1.3 Calcium Troponin I B-Natriuretic Peptide 25.1 Assessment/Plan All Active Problems (Last Reviewed 05/04/17 @ 08:56 by Kianna Wylie) COPD exacerbation (Acute) URI (upper respiratory infection) (Acute) Pneumonia (Acute) COPD exacerbation (Acute) Respiratory failure (Acute) Influenza A (Acute) COPD with exacerbation (Acute) The patient is a 47 y/o F w/ PMHx: Obesity, Anxiety, History of Cervical and Ovarian CA s/p chemotherapy and radiation 2 years prior, Tobacco use, Suspected Chronic COPD, most recently admitted 04/28-05/01/18 w/ acute COPD exacerbation secondary to CAP/acute tracheobronchitis w/ acute influenza A infection at that time who now re-presents to the [facility] ED on 05/15/18 with history of ongoing minimally productive cough, dyspnea progressively worsening w/ oxygenation in the 90s in addition to severe pleuritic chest discomfort worse with any coughing as well as nausea with occasional emesis following coughing fits. (1) Acute Sepsis secondary to Community Acquired Pneumonia w/ Suspected Acute on Chronic COPD Exacerbation: ED work-up included T 98.1, heart rate 116, BP 125/70, respiratory rate 22->28, 80% on room air improved to 94% on 2 L nasal cannula, CBC with W BC 15.1, hemoglobin 13.4, platelet 263 with left shift, BMP with glucose 119, troponin < 0.015, BNP 25.1, chest x-ray with no acute cardiopulmonary findings were noted minimal anterior wedging of the superior endplates of T11, T12 and L1 vertebral bodies possibly development from a remote injury with no changes compared to prior, CTPA w/ small filling defects of the pulmonary arteries with embolism versus artifact associate with suboptimal enhancement and motion with interstitial infiltrates. Will admit to PCU given ? PE, maintain on oxygen with wean as tolerated to room air, continue ATC duonebs, PRN albuterol, maintained on IV Rocephin and Azithromycin, HOB, IS parameters w/ pending sputum cultures, respiratory viral panel and urine antigens. (2) ? Acute Pulmonary Embolism: ED work-up included T 98.1, heart rate 116, BP 125/70, respiratory rate 17, 80% on room air improved to 94% on 2 L nasal cannula, CBC with W BC 15.1, hemoglobin 13.4, platelet 263 with left shift, BMP with glucose 119, troponin < 0.015, BNP 25.1, chest x-ray with no acute cardiopulmonary findings were noted minimal anterior wedging of the superior endplates of T11, T12 and L1 vertebral bodies possibly development from a remote injury with no changes compared to prior, CTPA w/ small filling defects of the pulmonary arteries with embolism versus artifact associate with suboptimal enhancement and motion with interstitial infiltrates. Recent illness with decreased activity, no recent travel or surgery. Given poor imaging, suspect artifact but cannot redose today. May need to consider re-imaging to avoid unnecessary anticoagulation. Will maintain on cardiac telemetry, in interim obtain ECHO, BNP unremarkable, obtain BL LE DVT US. Will continue therapeutic lovenox regimen pending re-imaging considerations. (3) Ovarian and Cervical CA: Noted s/p chemotherapy and radiation 2 years prior, noting supposed to have upcoming surgery, unclear as prolonged timeline. (4) Tobacco Abuse: Encouraged cessation, inpatient consultation per RT, NR if desired. (5) DVT Prophylaxis: SCDs, therapeutic lovenox as noted. Code Visit Inpatient E&M: 46578 Init Hosp L3
[2018-05-15] MEDS: Enoxaparin 80 MG/0.8 ML Syringe SC (15:09)
[2018-05-15] MEDS: Ceftriaxone 1 GM/50 ML BAG IV (15:26)
--- NOTE | 2018-05-15 16:27 | VDLE_ITS ---
Reason For Study: PE RIGHT LEFT GSV is normal. GSV is normal. Pt unable to tolerate compression rt groin. CFV is compressible, spontaneous, phasic, Normal color fill and doppler signal. competent, and demonstrates normal FV is compressible, spontaneous, phasic, augmentation. competent and demonstrates normal FV is compressible, spontaneous, phasic, augmentation. competent and demonstrates normal POP V is compressible, spontaneous, phasic, augmentation. competent and demonstrates normal POP V is compressible, spontaneous, phasic, augmentation. competent and demonstrates normal T/P Trunk is compressible. augmentation. PTV is compressible. T/P Trunk is compressible. RT PerV is compressible. PTV is compressible. Procedure LT PerV is compressible. Exam performed portable in patient room. A preliminary report was called and/or faxed to [facility]. Interpretation Summary No evidence for acute deep venous thrombosis bilateral lower extremities with patent and compressible bilateral great saphenous veins. Ordering Physician: Jenny Sebastian Referring Physician: Joana Esqueda Performed By: Aditi Alvarez RVT
--- NOTE | 2018-05-15 16:27 | ECHOD_ITS ---
Reason For Study: Arrhythmia Procedure This was a 2D Doppler, Color Flow transthoracic echocardiogram. Patient had a hard time staying on left side for exam. Exam performed portable in patient room. Left Ventricle Normal LV size. Left ventricular systolic function is normal. The estimated ejection fraction is 55 %. Stage 1 diastolic dysfunction. No regional wall motion abnormalities noted. Right Ventricle Normal RV size. Normal systolic function. Atria Normal left atrium. Normal right atrium. Mitral Valve Normal mitral valve. Tricuspid Valve Normal tricuspid valve. Aortic Valve The aortic valve is not well visualized. Pulmonic Valve Normal pulmonic valve. Great Vessels Normal aortic root. The pulmonary artery is normal size. Normal inferior vena cava. Pericardium/Pleural No pericardial effusion. MMode/2D Measurements & Calculations LVIDd: 4.6 cm IVSd: 0.78 cm Ao root diam: 3.0 cm LVIDs: 3.0 cm LVPWd: 0.82 cm LA dimension: 2.9 cm RVDd: 2.6 cm FS: 35.5 % Time Measurements MV dec time: 0.18 sec Doppler Measurements & Calculations MV E max oumar: 74.1 cm/sec Lat Peak E' Oumar: 13.4 cm/sec Med Peak E' Oumar: 12.3 cm/sec MV A max oumar: 81.1 cm/sec E/E' lat: 5.5 E/E' med: 6.0 MV E/A: 0.91 MV V2 max: 110.7 cm/sec MV P1/2t max oumar: 108.8 cm/sec Ao V2 max: 129.0 cm/sec MV max P.9 mmHg MV P1/2t: 63.6 msec Ao max P.7 mmHg MV V2 mean: 65.2 cm/sec Ao V2 mean: 80.5 cm/sec MV mean P.0 mmHg MV dec slope: 501.0 cm/sec2 Ao mean P.0 mmHg MV V2 VTI: 26.3 cm MVA(P1/2t): 3.5 cm2 Ao V2 VTI: 25.4 cm LV V1 max: 110.1 cm/sec PA V2 max: 89.6 cm/sec LV V1 max P.8 mmHg LV V1 mean P.2 mmHg LV V1 mean: 68.4 cm/sec LV V1 VTI: 21.8 cm Interpretation Summary Normal LV size. Left ventricular systolic function is normal. The estimated ejection fraction is 55 %. Stage 1 diastolic dysfunction. The global longitudinal strain = -20.1 % (normal). The study was technically difficult. Ordering Physician: Jenny Sebastian Referring Physician: Joana Esqueda Performed By: Anival Kuo RCS
[2018-05-15] MEDS: HYDROcodone Bitartrate/Apap 5/325 Tablet PO (17:11)
[2018-05-15] MEDS: 0.9% Normal Saline 1,000 ML 125 ML IV (17:19)
[2018-05-15] MEDS: guaiFENesin 1,200 MG Tablet 1200 MG PO (21:14)
[2018-05-15] MEDS: Morphine 2 MG/ML Syringe IV (21:14)
[2018-05-15] MEDS: Famotidine 20 MG Tablet PO (21:14)
[2018-05-15] MEDS: 0.9% NaCl Peripheral Flush Adult/Peds IV (21:15)
[2018-05-16] VITALS (17 sets, daily range): BP systolic 92–148; BP diastolic 60–69; PULSE 61–93; RESP 16–20; TEMP 36.6–36.7; O2SAT 92–97
[2018-05-16] MEDS: 0.9% Normal Saline 1,000 ML 125 ML IV (03:05)
[2018-05-16] MEDS: HYDROcodone Bitartrate/Apap 5/325 Tablet PO ×2 (05:41→23:36)
[2018-05-16] MEDS: Albuterol 2.5 MG/3 ML VIAL.NEB. INHALATION (07:20)
--- NOTE | 2018-05-16 07:41 | PCM.PN.HOSP ---
Patient Problems: Active and Suspected Problems (Last Reviewed 05/04/17 @ 08:56 by Kianna Wylie) Pneumonia (Acute) COPD exacerbation (Acute) Pulmonary embolism (Suspected) Subjective: Patient was seen and examined. Complains of shortness of breath and cough with backpain from persistent coughing. Denies fever but admits to chills. On 5L of oxygen. Vitals/I&O's: Vital Signs Temp Pulse Resp BP Pulse Ox 97.8 F 76 20 H 111/69 93 05/16/18 05:46 05/16/18 06:27 05/16/18 05:46 05/16/18 05:46 05/16/18 05:46 Oxygen Flow Rate (L/min) 4 Oxygen Delivery Method Nasal Cannula Weight: 71.4 kg Body Mass Index (BMI) 28.8 Intake and Output for Last 24 Hours 05/14/18 05/15/18 05/16/18 23:59 23:59 23:59 Intake Total 300 / 300 1936 / 1936 Output Total 250 / 250 500 / 500 Balance 50 / 50 1436 / 1436 General: Alert, Oriented x3, Cooperative, - - appears anxious, on 5L oxygen HEENT: Atraumatic, PERRLA, EOMI, Normocephalic Oral: Moist Mucosa Neck: Supple Lungs: Normal air movement, Diminished, Rhonchi - generalised Cardiovascular: Regular rate, Regular Rhythm, Normal S1, Normal S2, No murmurs Abdomen: Bowel Sounds Present, Soft, Non Tender, Non-Distended, No Hepato-splenomegaly Extremities: No edema Skin: No rashes, No breakdown Musculoskeletal: No Tenderness to Palpation of Joints or Extremities Lymphatic: No Cervical, Supraclavicular, or Inguinal Adenopathy Neurological: Cranial nerves II-XII grossly intact, Neuro grossly intact Psych/Mental Status: Normal Affect, Appropriate Microbiology Past 72 Hours 05/15/18 17:00 Urine, Clean Catch Streptococcus pneumoniae Antigen (M - Final 05/15/18 17:00 Urine, Clean Catch Legionella Antigen - Final Laboratory Results 05/15/18 12:26: WBC 15.1 H, RBC 4.26, Hgb 13.4, Hct 40.3, MCV 94.6, MCH 31.5, MCHC 33.3, RDW 13.0, RDW Differential 44.3 H, Plt Count 263, MPV 10.3, Immature Gran % (Auto) 0.200, Neut % (Auto) 80.6 H, Lymph % (Auto) 9.1 L, [place] % (Auto) 9.9, Eos % (Auto) 0.0, Baso % (Auto) 0.2, Absolute Neuts (auto) 12.2 H, Absolute Lymphs (auto) 1.38, Total Counted Not Reportable 05/15/18 12:26: Sodium 136, Potassium 4.3, Chloride 98, Carbon Dioxide 26.0, Anion Gap 12, BUN 9, Creatinine 0.66, Estim Creat Clear Calc 84.24, Est GFR (MDRD) Af Amer 125, Est GFR (MDRD) Non-Af 103, BUN/Creatinine Ratio 13.7, Glucose 119 H, Calcium 9.1 05/15/18 12:26: Troponin I < 0.015 05/15/18 12:26: B-Natriuretic Peptide 25.1 05/15/18 12:26: Lactic Acid 1.3 05/15/18 12:26: Magnesium 2.0 Current Medications Acetaminophen (Tylenol) 650 mg PO Q6H PRN PRN PRN Reason: Non-cardiac pain (mod-severe) Hydrocodone Bitart/Acetaminophen ([place] 5mg-325mg) 1 - 2 tablet PO Q6H PRN PRN PRN Reason: Moderate-severe pain Last Admin: 05/16/18 05:41 Dose: 2 tablet Al Hydroxide/Mg Hydroxide (Mylanta Ii) 30 ml PO Q6H PRN PRN PRN Reason: Gastric burning Albuterol Sulfate (Ventolin Aerosols) 2.5 mg INHALATION Q2H PRN PRN PRN Reason: SHORTNESS OF BREATH Last Admin: 05/16/18 07:20 Dose: 2.5 mg Albuterol/Ipratropium (Duoneb) 3 ml INHALATION Q4HWA.RT [facility] Last Admin: 05/15/18 22:20 Dose: 3 ml Enoxaparin Sodium (Lovenox) 70 mg SC Q12@0600,1800 [facility] Last Admin: 05/16/18 05:42 Dose: Not Given Famotidine (Pepcid) 20 mg PO BID [facility] Last Admin: 05/15/18 21:14 Dose: 20 mg Guaifenesin (Mucinex) 1,200 mg PO BID [facility] Last Admin: 05/15/18 21:14 Dose: 1,200 mg Hydralazine HCl (Apresoline Iv) 10 mg IV Q4H PRN PRN PRN Reason: SBP > 160 Sodium Chloride () 1,000 mls @ 125 mls/hr IV .Q8H [facility] Last Admin: 05/16/18 03:05 Dose: 125 mls/hr Azithromycin 500 mg/ Dextrose 255 mls @ 250 mls/hr IV Q24 [facility] Stop: 05/18/18 11:02 Ceftriaxone Sodium (Rocephin) 1 gm in 50 mls @ 100 mls/hr IV Q24H [facility] Magnesium Hydroxide (Milk Of Magnesia) 30 ml PO DAILY PRN PRN Reason: Constipation Methylprednisolone (Solu-Medrol) 40 mg IV Q8 [facility] Last Admin: 05/16/18 05:42 Dose: 40 mg Morphine Sulfate () 1 - 2 mg IV Q4H PRN PRN PRN Reason: PAIN Last Admin: 05/15/18 21:14 Dose: 2 mg Nicotine (Nicoderm Cq (Pbkc)) 21 mg TRANSDERM. DAILY [facility] Last Admin: 05/15/18 17:18 Dose: 21 mg Ondansetron HCl (Zofran) 4 mg IV Q8H PRN PRN PRN Reason: NAUSEA/VOMITING Sodium Chloride () 5 - 15 ml IV UD PRN PRN Reason: SALINE FLUSH Last Admin: 05/15/18 21:15 Dose: 10 ml Medical Necessity - Tobacco Use Smoking Status: Current every day smoker Tobacco Use: Cigarettes Assessment/Plan All Active Problems (Last Reviewed 05/04/17 @ 08:56 by Kianna Wylie) COPD exacerbation (Acute) URI (upper respiratory infection) (Acute) Pneumonia (Acute) COPD exacerbation (Acute) Respiratory failure (Acute) Influenza A (Acute) COPD with exacerbation (Acute) 47 y/o female with PMHx of Obesity, Anxiety, History of Cervical and Ovarian CA s/p chemotherapy and radiation 2 years prior, nicotine dependence who was recently admitted on 04/28-05/01/18 with acute COPD exacerbation secondary to CAP/acute tracheobronchitis with acute influenza A infection at that time. Patient comes in with cough, dyspnea severe pleuritic chest discomfort worse with any coughing as well as nausea with occasional emesis following coughing fits. 1. Sepsis secondary to Community Acquired Pneumonia/Acute COPD Exacerbation, on IV ceftriaxone and azithromycin, will continue same 2. Acute hypoxic respiratory failure secondary to acute CAP/COPD exacerbation/ suspected acute PE, will continue on oxygen, breathing treatments, IV steroids, antibiotics, encourage use of IS, wean off oxygen for SpO2>94% 3. Suspected Acute Pulmonary embolism, on therapeutic Lovenox, CTA chest showed possible small PE, doppler USG of legs pending, will continue on therapeutic Lovenox, repeat CTA in 24-48hours 4. Acute CAP, confirmed as interstitial infiltrates on CTA chest, continue IV antibiotics 5. Back pain, acute on chronic, CTA chest showed minimal anterior wedging of the superior endplates of T11, T12 and L1 vertebral bodies, possibly development from a remote injury, will need to followed up in the outpatient. 6. History of Ovarian and Cervical CA, s/p chemotherapy and radiation 2 years prior, noting supposed to have upcoming surgery, unclear as prolonged timeline. 7. Nicotine dependence, on replacement, 8. DVT Prophylaxis - Lovenox SC Code Visit Inpatient E&M: 78179 Subs Hosp L2
[2018-05-16] MEDS: Ceftriaxone 1 GM/50 ML BAG IV (09:06)
[2018-05-16] MEDS: guaiFENesin 1,200 MG Tablet 1200 MG PO ×2 (10:38→22:09)
[2018-05-16] MEDS: Famotidine 20 MG Tablet PO ×2 (10:38→22:09)
[2018-05-16] MEDS: Ipratropium/Albuterol Sulfate 3 ML AMPUL.NEB INHALATION ×2 (10:44→19:07)
--- NOTE | 2018-05-16 11:45 | CASEMGMT ---
RC BOOGIE Face to Face with patient for initial transition planning/care coordination assessment. RC BOOGIE introduced self and role at [facility]. Patient lying in bed, alert and oriented. Patient willing to participate in assessment and is able to answer all questions appropriately. Care providers, pharmacy, and demographics verified. Patient wishes to discharge home, denies need for home health at this time. Patient states she has no further needs or concerns at this time. CM to follow for discharge planning needs that may arise. PCP: Dheeraj Specialists: Patient states she sees several doctors at [facility] but did not have list Preferred Pharmacy: [facility] Insurance: None Prescription Benefit: None Living Will/HPOA: Yes son Norma Kan LNOK: , son Living Arrangements: Patient lives with in mobile home with 3 steps and railing. Patient states that she was independent at home. Transportation: self/ DME/HHC: Patient states she has a nebulizer machine. Denies home oxygen, bipap, cpap. Patient states that she does smoke but is quitting. RC BOOGIE gave information regarding smoking cessation. Disposition Plan: Patient to discharge home with family support and follow-up plans in place. Will monitor for need for home oxygen at discharge. Josie BERRIOS, RN, CM
[2018-05-16] MEDS: Morphine 2 MG/ML Syringe IV ×2 (12:50→18:12)
[2018-05-16] MEDS: 0.9% NaCl Peripheral Flush Adult/Peds IV (12:50)
[2018-05-16] MEDS: Acetaminophen 325 MG Tablet 650 MG PO (12:54)
[2018-05-16] MEDS: 0.9% Normal Saline 1,000 ML 50 ML IV (12:55)
[2018-05-17] VITALS (19 sets, daily range): BP systolic 101–105; BP diastolic 58–87; PULSE 50–84; RESP 16–20; TEMP 36.4–36.6; O2SAT 91–95
[2018-05-17] MEDS: Ipratropium/Albuterol Sulfate 3 ML AMPUL.NEB INHALATION ×6 (01:38→23:29)
[2018-05-17 06:35] LABS: Absolute Lymphocyte Count 1.66 X10^3/ul (0.83-4.51); Absolute Neutrophil Count 16.9 X10^3/uL (2.0-7.7); Anion Gap 9 (5-15); BUN 12 mg/dL (7-18); BUN/Creat Ratio 19.7 RATIO (10-20); Basophil# 0.04 X10^3/uL; Basophil% 0.2 % (0-1); Calcium,Total 8.7 mg/dL (8.5-10.1); Chloride 108 mmol/L (98-107); Creatinine, Serum 0.61 mg/dL (0.55-1.02); EST Glomerular Filtration Rate 112 mL/min (>60); Est Glom Filt Rate - Afr Amer 136 mL/min (>60); Estimated Creatinine Clearance 91.14 ml/min; Glucose 148 mg/dL (74-106); Hematocrit 34.5 % (37-47); Lymphocyte # 1.66 X10^3/ul (4.0); Lymphocyte % 8.5 % (19-41); Mean Corp Hgb Conc 31.9 g/gl (32-36); Mean Corpuscular Hgb 31.1 pg (27.0-32.0); Mean Corpuscular Volume 97.5 fL (81-99); Mean Platelet Vol. 10.2 fl (6.2-12.0); Monocyte# 0.79 X10^3/uL; Monocyte% 4.1 % (0-10); Neutrophil # 16.86 X10^3/uL (2.7-7.7); Neutrophil % 86.4 % (47-70); Platelet Count 279 K/mm3 (150-450); Potassium 4.6 mmol/L (3.5-5.1); RBC Distribution Width CV 13.4 % (11.6-14.6); RBC Distribution Width SD 47.9 fl (35.1-43.9); Red Blood Count 3.54 M/mm3 (4.2-5.4); Sodium Level 141 mmol/L (136-145); White Blood Count 19.5 K/mm3 (4.4-11.0)
[2018-05-17 06:39] LABS: Differential Indicated SCAN CRITERIA MET; POSITIVE COUNT NO; POSITIVE DIFFERENTIAL NO; POSITIVE MORPHOLOGY YES
[2018-05-17 07:16] LABS: Reactive Lymphocyte RARE
[2018-05-17] MEDS: Morphine 2 MG/ML Syringe IV ×3 (07:44→22:49)
[2018-05-17] MEDS: Famotidine 20 MG Tablet PO ×2 (07:48→22:38)
[2018-05-17] MEDS: Ceftriaxone 1 GM/50 ML BAG IV (09:31)
[2018-05-17] MEDS: HYDROcodone Bitartrate/Apap 5/325 Tablet PO ×2 (11:52→18:13)
--- NOTE | 2018-05-17 12:16 | PN_ITS ---
Patient Problems: Active and Suspected Problems (Last Reviewed 05/04/17 @ 08:56 by Kianna Wylie) Pneumonia (Acute) COPD exacerbation (Acute) Pulmonary embolism (Suspected) Subjective: Patient was seen and examined. Coughing up lots of sputum. Denies any fever or chills. Appears improved. Now on 2 L of oxygen, down from 5 L. Objective: Physical exam: General: Alert, Oriented x3, Cooperative, - - appears anxious, on 2L oxygen HEENT: Atraumatic, PERRLA, EOMI, Normocephalic Oral: Moist Mucosa Neck: Supple Lungs: Normal air movement, Diminished, Rhonchi - generalised Cardiovascular: Regular rate, Regular Rhythm, Normal S1, Normal S2, No murmurs Abdomen: Bowel Sounds Present, Soft, Non Tender, Non-Distended, No Hepato- splenomegaly Extremities: No edema Skin: No rashes, No breakdown Musculoskeletal: No Tenderness to Palpation of Joints or Extremities Lymphatic: No Cervical, Supraclavicular, or Inguinal Adenopathy Neurological: Cranial nerves II-XII grossly intact, Neuro grossly intact Psych/Mental Status: Normal Affect, Appropriate Vitals/I&O's: Vital Signs Temp Pulse Resp BP Pulse Ox 97.8 F 70 16 105/87 H 94 05/17/18 07:40 05/17/18 11:17 05/17/18 11:17 05/17/18 07:40 05/17/18 07:40 Oxygen Flow Rate (L/min) 2 Oxygen Delivery Method Nasal Cannula Weight: 71.4 kg Body Mass Index (BMI) 28.8 Intake and Output for Last 24 Hours 05/15/18 05/16/18 05/17/18 23:59 23:59 23:59 Intake Total 300 / 300 5820 / 5820 1003 / 1003 Output Total 250 / 250 4500 / 4500 Balance 50 / 50 1320 / 1320 1003 / 1003 Microbiology Past 72 Hours 05/15/18 22:30 Sputum, Expectorated/Coughed Gram Stain - Final 05/15/18 22:30 Sputum, Expectorated/Coughed Respiratory Culture - Preliminary GNR lactose community specialist 05/15/18 17:39 Mucosa - Nose Respiratory Panel (PCR) - Final 05/15/18 17:00 Urine, Clean Catch Streptococcus pneumoniae Antigen (M - Final 05/15/18 17:00 Urine, Clean Catch Legionella Antigen - Final Laboratory Results 05/17/18 05:46: WBC 19.5 H, RBC 3.54 L, Hgb 11.0 L, Hct 34.5 L, MCV 97.5, MCH 31.1, MCHC 31.9 L, RDW 13.4, RDW Differential 47.9 H, Plt Count 279, MPV 10.2, Immature Gran % (Auto) 0.800, Neut % (Auto) 86.4 H, Lymph % (Auto) 8.5 L, [place] % (Auto) 4.1, Eos % (Auto) 0.0, Baso % (Auto) 0.2, Absolute Neuts (auto) 16.9 H, Absolute Lymphs (auto) 1.66, Total Counted Not Reportable, Reactive Lymphocytes RARE 05/17/18 05:46: Sodium 141, Potassium 4.6, Chloride 108 H, Carbon Dioxide 24.0, Anion Gap 9, BUN 12, Creatinine 0.61, Estim Creat Clear Calc 91.14, Est GFR (MDRD) Af Amer 136, Est GFR (MDRD) Non-Af 112, BUN/Creatinine Ratio 19.7, Glucose 148 H, Calcium 8.7 Current Medications Acetaminophen (Tylenol) 650 mg PO Q6H PRN PRN PRN Reason: Non-cardiac pain (mod-severe) Last Admin: 05/16/18 12:54 Dose: 650 mg Hydrocodone Bitart/Acetaminophen ([place] 5mg-325mg) 1 - 2 tablet PO Q6H PRN PRN PRN Reason: Moderate-severe pain Last Admin: 05/17/18 11:52 Dose: 1 tablet Al Hydroxide/Mg Hydroxide (Mylanta Ii) 30 ml PO Q6H PRN PRN PRN Reason: Gastric burning Albuterol Sulfate (Ventolin Aerosols) 2.5 mg INHALATION Q2H PRN PRN PRN Reason: SHORTNESS OF BREATH Last Admin: 05/16/18 07:20 Dose: 2.5 mg Albuterol/Ipratropium (Duoneb) 3 ml INHALATION Q4HWA.RT DELIA Last Admin: 05/17/18 11:17 Dose: 3 ml Enoxaparin Sodium (Lovenox) 70 mg SC Q12@0600,1800 [facility] Last Admin: 05/17/18 05:34 Dose: Not Given Famotidine (Pepcid) 20 mg PO BID [facility] Last Admin: 05/17/18 07:48 Dose: 20 mg Guaifenesin (Mucinex) 1,200 mg PO BID [facility] Last Admin: 05/17/18 07:56 Dose: Not Given Hydralazine HCl (Apresoline Iv) 10 mg IV Q4H PRN PRN PRN Reason: SBP > 160 Azithromycin 500 mg/ Dextrose 255 mls @ 250 mls/hr IV Q24 [facility] Stop: 05/18/18 11:02 Last Admin: 05/17/18 10:16 Dose: 250 mls/hr Ceftriaxone Sodium (Rocephin) 1 gm in 50 mls @ 100 mls/hr IV Q24H [facility] Last Admin: 05/17/18 09:31 Dose: 100 mls/hr Magnesium Hydroxide (Milk Of Magnesia) 30 ml PO DAILY PRN PRN Reason: Constipation Methylprednisolone (Solu-Medrol) 40 mg IV Q8 [facility] Last Admin: 05/17/18 05:34 Dose: 40 mg Morphine Sulfate () 1 - 2 mg IV Q4H PRN PRN PRN Reason: PAIN Last Admin: 05/17/18 07:44 Dose: 2 mg Nicotine (Nicoderm Cq (Pbkc)) 21 mg TRANSDERM. DAILY [facility] Last Admin: 05/17/18 07:48 Dose: 21 mg Ondansetron HCl (Zofran) 4 mg IV Q8H PRN PRN PRN Reason: NAUSEA/VOMITING Sodium Chloride () 5 - 15 ml IV UD PRN PRN Reason: SALINE FLUSH Last Admin: 05/16/18 12:50 Dose: 10 ml Medical Necessity - Tobacco Use Smoking Status: Current every day smoker Tobacco Use: Cigarettes Assessment/Plan All Active Problems (Last Reviewed 05/04/17 @ 08:56 by Kianna Wylie) COPD exacerbation (Acute) URI (upper respiratory infection) (Acute) Pneumonia (Acute) COPD exacerbation (Acute) Respiratory failure (Acute) Influenza A (Acute) COPD with exacerbation (Acute) 47 y/o female with PMHx of Obesity, Anxiety, History of Cervical and Ovarian CA s/p chemotherapy and radiation 2 years prior, nicotine dependence who was recently admitted on 04/28-05/01/18 with acute COPD exacerbation secondary to CAP/acute tracheobronchitis with acute influenza A infection at that time. Patient comes in with cough, dyspnea severe pleuritic chest discomfort worse with any coughing as well as nausea with occasional emesis following coughing fits. 1. Sepsis secondary to Community Acquired Pneumonia/Acute COPD Exacerbation, on IV ceftriaxone and azithromycin (day 2), will continue same 2. Acute hypoxic respiratory failure secondary to acute CAP/COPD exacerbation/ suspected acute PE, will continue on oxygen, breathing treatments, IV steroids, antibiotics, encourage use of IS, wean off oxygen for SpO2>94% 3. Suspected Acute Pulmonary embolism, on therapeutic Lovenox, CTA chest showed possible small PE, doppler USG of legs negative, will continue on therapeutic Lovenox, repeat CTA chest tomorrow 4. Acute CAP, confirmed as interstitial infiltrates on CTA chest, continue IV antibiotics 5. Back pain, acute on chronic, CTA chest showed minimal anterior wedging of the superior endplates of T11, T12 and L1 vertebral bodies, possibly development from a remote injury, will need to followed up in the outpatient. 6. History of Ovarian and Cervical CA, s/p chemotherapy and radiation 2 years prior, noting supposed to have upcoming surgery, unclear as prolonged timeline. 7. Nicotine dependence, on replacement, 8. DVT Prophylaxis - Lovenox SC Code Visit Inpatient E&M: 32754 Subs Hosp L2
[2018-05-17] MEDS: 0.9% NaCl Peripheral Flush Adult/Peds IV (15:01)
[2018-05-17] MEDS: guaiFENesin 1,200 MG Tablet 1200 MG PO (22:37)
[2018-05-18] VITALS (10 sets, daily range): BP systolic 103–127; BP diastolic 70–75; PULSE 51–86; RESP 16–21; TEMP 36.4–36.9; O2SAT 87–96
--- NOTE | 2018-05-18 05:55 | CT_ITS ---
STUDY: CTA CHEST REASON FOR EXAM: Female, 47 years old. Cough. Hypoxia RADIATION DOSAGE (If Supplied By Facility): CTDIvol = ( 5.88 ) mGy, DLP = ( 271.99 ) mGycm TECHNIQUE: The examination was performed with the intravenous administration of Isovue 370 100ml IV. Post-processing of the angiographic images was performed, with multiplanar reformation and 3D reconstruction. Individualized dose optimization techniques were used for this CT. COMPARISON: None. FINDINGS: Normal enhancement of the main pulmonary artery and right and left pulmonary arteries. Normal enhancement of the bilateral peripheral pulmonary arteries. There is no demonstrated pulmonary embolism. Normal thoracic aorta and visualized great vessels. There is no demonstrated aortic dissection. Normal heart and pericardium. Normal mediastinum. Normal hilar regions. Normal visualized trachea and bronchi. The lungs are well expanded. Patchy groundglass opacities are seen in both lungs suggesting bilateral pneumonia. Normal pleura. Normal chest wall structures. Normal osseous structures. Normal visualized upper abdomen. CT/CTA Chest W/WO Contrast IMPRESSION: No demonstrated pulmonary embolism or arterial dissection. Patchy groundglass opacities are seen in both lungs suggesting bilateral pneumonia. Electronically Signed: Girish Harry, at 7:05 EST Tel , Service support ,
[2018-05-18 06:21] LABS: Hematocrit 35.9 % (37-47); Hemoglobin 11.3 g/dl (12.0-15.0); Mean Corp Hgb Conc 31.5 g/gl (32-36); Mean Corpuscular Hgb 31.4 pg (27.0-32.0); Mean Corpuscular Volume 99.7 fL (81-99); Mean Platelet Vol. 10.4 fl (6.2-12.0); Platelet Count 267 K/mm3 (150-450); RBC Distribution Width CV 13.6 % (11.6-14.6); RBC Distribution Width SD 47.6 fl (35.1-43.9); White Blood Count 17.9 K/mm3 (4.4-11.0)
[2018-05-18 06:22] LABS: Differential Indicated MANUAL DIFF; POSITIVE COUNT YES; POSITIVE DIFFERENTIAL NO; POSITIVE MORPHOLOGY YES
[2018-05-18 06:25] LABS: Anion Gap 7 (5-15); BUN 14 mg/dL (7-18); BUN/Creat Ratio 22.8 RATIO (10-20); Calcium,Total 8.9 mg/dL (8.5-10.1); Chloride 108 mmol/L (98-107); Creatinine, Serum 0.61 mg/dL (0.55-1.02); EST Glomerular Filtration Rate 111 mL/min (>60); Est Glom Filt Rate - Afr Amer 135 mL/min (>60); Estimated Creatinine Clearance 91.14 ml/min; Glucose 138 mg/dL (74-106); Potassium 5.3 mmol/L (3.5-5.1); Sodium Level 142 mmol/L (136-145)
[2018-05-18] MEDS: Ipratropium/Albuterol Sulfate 3 ML AMPUL.NEB INHALATION ×2 (06:48→10:44)
[2018-05-18 06:50] LABS: Lymphocyte 8 % (19-41); Metamyelocyte 6 % (0-1); Monocyte 1 % (0-10); Neutrophil-Band 27 % (0-5); Neutrophil-Segmented 58 % (47-70); Total Cells Counted 100 (MANUAL DIFF)
[2018-05-18 06:53] LABS: Absolute Lymphocyte Count 1.43 X10^3/ul (0.83-4.51); Absolute Neutrophil Count 16.3 X10^3/uL (2.0-7.7); Lymphocyte # 1.43 X10^3/ul (4.0); Toxic Granulation 1+
[2018-05-18 06:54] LABS: Polychromasia RARE
[2018-05-18] MEDS: Morphine 2 MG/ML Syringe IV (08:53)
[2018-05-18] MEDS: 0.9% NaCl Peripheral Flush Adult/Peds IV ×2 (08:57→10:51)
--- NOTE | 2018-05-18 09:08 | DS.PCM_ITS ---
Discharge Date and Diagnosis Date of Admission: 05/15/18 Date of Discharge: 05/18/18 - Primary Discharge Diagnosis Active and Suspected Problems (Last Reviewed 05/04/17 @ 08:56 by Kianna Wylie) Community acquired pneumonia COPD exacerbation (Acute) Acute hypoxic respiratory failure Pulmonary embolism (Suspected), acute PE ruled out Nicotine dependence - Secondary Discharge Diagnosis Chronic Problems (Last Reviewed 05/04/17 @ 08:56 by Kianna Wylie) Chronic nicotine dependence (Chronic) CA cervix (Chronic) Ovarian cancer (Chronic) Tobacco dependency (Chronic) Hospital Course and Treatment Imaging Results: Clinical Impression(s) from Imaging Studies Chest X-Ray 05/15/18 12:29 IMPRESSION: 1. Normal x-ray examination of the chest. 2. Minimal anterior wedging of the superior endplates of T11, T12 and L1 vertebral bodies may be developmental or from remote injury. 3. No interval changes when compared to 04/30/2017. Electronically Signed: Teddy Arzola MD at 12:49 EST , Service support , Chest CTA 05/15/18 13:05 IMPRESSION: Small filling defects of the pulmonary arteries with embolism versus artifact associated with suboptimal enhancement and motion. Interstitial infiltrates. Electronically Signed: Ciro Thomas MD at 14:45 EST , Service support , ADDENDUM: 05/15/18 1523 IMPRESSION: Small filling defects of the pulmonary arteries with embolism versus artifact associated with suboptimal enhancement and motion. Interstitial infiltrates. N.B. : The above information has been verbally conveyed by Ciro Thomas MD to Dr. Ventura Farias MD, on 05/15/2018 15:16:35 (ET). Electronically Signed: Ciro Thomas MD at 14:45 EST , Service support , ADDENDUM: 05/18/18 0648 IMPRESSION: Small filling defects of the pulmonary arteries with embolism versus artifact associated with suboptimal enhancement and motion. Interstitial infiltrates. N.B. : The above information has been verbally conveyed by Ciro Thomas MD to Dr. Ventura Farias MD, on 05/15/2018 15:16:35 (ET). Electronically Signed: Ciro Thomas MD at 14:45 EST , Service support , Chest CTA 05/18/18 05:55 IMPRESSION: No demonstrated pulmonary embolism or arterial dissection. Patchy groundglass opacities are seen in both lungs suggesting bilateral pneumonia. Electronically Signed: Girish Harry, at 7:05 EST Tel , Service support , 05/18/18 05:55 CTA Chest W/WO Contrast [CT] AM (NON MEDS) None Operations: None Procedures: None Summary of Care Provided: 47 y/o female with PMHx of Obesity, Anxiety, History of Cervical and Ovarian CA s/p chemotherapy and radiation 2 years prior, nicotine dependence who was recently admitted on 04/28-05/01/18 with acute COPD exacerbation secondary to CA P/acute tracheobronchitis with acute influenza A infection at that time. Patient was re-admitted with cough, dyspnea severe pleuritic chest discomfort worse with any coughing as well as nausea with occasional emesis following coughing fits. Chest x-ray on admission did not show any pneumonia. CTA chest to rule out PE showed probable PE and interstitial infiltrates. Patient is not on oxygen at [facility]. She was managed as sepsis secondary to Community Acquired Pneumonia/Acute COPD Exacerbation with IV ceftriaxone and azithromycin, as well as IV steroids, breathing treatments and oxygen. She complained of thoracic pain with bouts of coughing. CTA chest showed minimal anterior wedging of the superior endplates of T11, T12 and L1 vertebral bodies, possibly development from a remote injury, will need to followed up in the outpatient. Patient was managed initially on IV lovenox in therapeutic dosing and later repeat CTA chest ruled out acute PE. Anticoagulation was stopped. Patient qualified for home oxygen and was discharged on 2L of oxygen. She was strongly advised to quit smoking. She will follow-up with pulmonology in the outpatient. Subjective: On the day of discharge, she complained of severe chest pain with coughing. Denied worsening SOB, dizziness. On 2L oxygen Objective: Physical exam: General: Alert, Oriented x3, Cooperative, on 2L oxygen HEENT: Atraumatic, PERRLA, EOMI, Normocephalic Oral: Moist Mucosa Neck: Supple Lungs: Normal air movement, Diminished, Rhonchi - generalised Cardiovascular: Regular rate, Regular Rhythm, Normal S1, Normal S2, No murmurs Abdomen: Bowel Sounds Present, Soft, Non Tender, Non-Distended, No Hepato- splenomegaly Extremities: No edema Skin: No rashes, No breakdown Musculoskeletal: No Tenderness to Palpation of Joints or Extremities Lymphatic: No Cervical, Supraclavicular, or Inguinal Adenopathy Neurological: Cranial nerves II-XII grossly intact, Neuro grossly intact Psych/Mental Status: Normal Affect, Appropriate - Physical Exam Vital Signs Temp Pulse Resp BP Pulse Ox 98.4 F 78 20 H 124/71 H 95 05/18/18 06:00 05/18/18 06:48 05/18/18 06:48 05/18/18 06:00 05/18/18 06:48 Oxygen Flow Rate (L/min) 4 Oxygen Delivery Method Nasal Cannula Weight: 71.4 kg Body Mass Index (BMI) 28.8 Intake and Output for Last 24 Hours 05/16/18 05/17/18 05/18/18 23:59 23:59 23:59 Intake Total 5820 / 5820 2289 / 2289 200 / 200 Output Total 4500 / 4500 500 / 500 Balance 1320 / 1320 1789 / 1789 200 / 200 Microbiology Past 72 Hours 05/15/18 22:30 Gram Stain - Final Sputum, Expectorated/Coughed Respiratory Culture - Final Enterobacter cloacae complex 05/15/18 17:39 Respiratory Panel (PCR) - Final Mucosa - Nose 05/15/18 17:00 Streptococcus pneumoniae Antigen (M - Final Urine, Clean Catch 05/15/18 17:00 Legionella Antigen - Final Urine, Clean Catch Laboratory Tests Past 24 Hrs 05/18/18 05/18/18 05:40 05:40 WBC 17.9 H RBC 3.60 L Hgb 11.3 L Hct 35.9 L MCV 99.7 H MCH 31.4 MCHC 31.5 L RDW 13.6 RDW Differential 47.6 H Plt Count 267 MPV 10.4 Neut % (Auto) Not Reportable Absolute Neuts (auto) 16.3 H Absolute Lymphs (auto) 1.43 Total Counted 100 Neutrophils % (Manual) 58 Band Neutrophils % 27 H Lymphocytes % (Manual) 8 L Monocytes % (Manual) 1 Metamyelocytes % 6 H Diff Path Review May foll Toxic Granulation 1+ Polychromasia RARE Sodium 142 Potassium 5.3 H Chloride 108 H Carbon Dioxide 27.0 Anion Gap 7 BUN 14 Creatinine 0.61 Estim Creat Clear Calc 91.14 Est GFR (MDRD) Af Amer 135 Est GFR (MDRD) Non-Af 111 BUN/Creatinine Ratio 22.8 H Glucose 138 H Calcium 8.9 Discharge Diet: Low fat/ Low Cholesterol, 2000 mg Sodium Diet Discharge Activity: Return to Normal Activity Home Medications: Medications to take at Discharge Acetaminophen [Tylenol Tablet] 650 mg PO Q6H PRN PRN tablet 05/18/18 Albuterol Aerosols [Ventolin Aerosols] 2.5 mg INHALATION Q2H PRN PRN #1 box 05/18/18 Guaifenesin [Mucinex] 1,200 mg PO BID PRN #20 tablet 05/18/18 Ipratropium/Albuterol Sulfate [Duoneb] 3 ml INHALATION Q4HWA.RT #1 box 05/18/18 Levofloxacin [Levaquin] 750 mg PO DAILY #7 tablet 05/18/18 Nicotine [Nicoderm Cq] 21 mg TRANSDERM. DAILY #30 patch 05/18/18 Prednisone 10 mg PO DAILY #30 tablet 05/18/18 Following Prescrptions Were Given to Patient: Albuterol Aerosols [Ventolin Aerosols] 2.5 mg INHALATION Q2H PRN PRN #1 box PRN Reason: SHORTNESS OF BREATH Ipratropium/Albuterol Sulfate [Duoneb] 3 ml INHALATION Q4HWA.RT #1 box Levofloxacin [Levaquin] 750 mg PO DAILY #7 tablet Nicotine [Nicoderm Cq] 21 mg TRANSDERM. DAILY #30 patch Prednisone 10 mg PO DAILY #30 tablet Guaifenesin [Mucinex] 1,200 mg PO BID PRN #20 tablet PRN Reason: Cough Primary Care Physician: Joana Esqueda MD [Primary Care Provider] - Please follow up with your Primary Care Physician in: within 1-2 weeks Please Follow Up With: Vitaly López MD When: within 2 weeks Disposition: Home Minutes spent on discharge:: 40 Patient Condition:: Stable Medical Necessity - Tobacco Use Smoking Status: Current every day smoker Tobacco Use: Cigarettes Meaningful Use Info Meaningful Use Diagnoses (Choose all that apply): None applicable Code Visit Inpatient E&M: 06569 Disch Hosp
--- NOTE | 2018-05-18 09:08 | DCINST_ITS ---
- Discharge Diagnoses Current Active Problems: Current Active and Chronic Problems (Last Reviewed 05/04/17 @ 08:56 by Kianna Wylie) Pneumonia (Acute) COPD exacerbation (Acute) Ovarian cancer (Chronic) Reason(s) for Visit for Discharge Instructions: Shortness of breath You will use the following diet at home:: Regular Your food should be the consistency of: Regular Your liquids should be the consistency of: Regular/Thin Discharge Activity: Return to Normal Activity Additional Instructions: Complete your antibiotics. You are being discharged on oxygen. Continue to use your breathing treatments, as prescribed, for for shortness of breath. You are strongly advised to quit smoking. Follow with Dr. Esqueda in 1-2 weeks. Follow-up with the lung doctor within 2 weeks. Allergies/Adverse Reactions: Allergies desflurane Allergy (Verified 05/15/18 16:30) Anaphylaxis being put to sleep isoflurane Allergy (Verified 05/15/18 16:30) Anaphylaxis being put to sleep sevoflurane Allergy (Verified 05/15/18 16:30) Anaphylaxis being put to sleep succinylcholine Allergy (Verified 05/15/18 16:30) Anaphylaxis being put to sleep silicone Adverse Reaction (Verified 05/04/17 08:56) Nausea/Vom/Diarrhea Medications to take at Discharge Acetaminophen [Tylenol Tablet] 650 mg PO Q6H PRN PRN tablet 05/18/18 Albuterol Aerosols [Ventolin Aerosols] 2.5 mg INHALATION Q2H PRN PRN #1 box 05/18/18 Amoxicillin/Potassium Clav [Augmentin 875-125 Tablet] 1 each PO BID #14 tablet 05/18/18 Guaifenesin [Mucinex] 1,200 mg PO BID PRN #20 tablet 05/18/18 Ipratropium/Albuterol Sulfate [Duoneb] 3 ml INHALATION Q4HWA.RT #1 box 05/18/18 Nicotine [Nicoderm Cq] 21 mg TRANSDERM. DAILY #30 patch 05/18/18 Prednisone 10 mg PO DAILY #30 tablet 05/18/18 The following prescriptions were given: Albuterol Aerosols [Ventolin Aerosols] 2.5 mg INHALATION Q2H PRN PRN #1 box PRN Reason: SHORTNESS OF BREATH Ipratropium/Albuterol Sulfate [Duoneb] 3 ml INHALATION Q4HWA.RT #1 box Nicotine [Nicoderm Cq] 21 mg TRANSDERM. DAILY #30 patch Prednisone 10 mg PO DAILY #30 tablet Amoxicillin/Potassium Clav [Augmentin 875-125 Tablet] 1 each PO BID #14 tablet Guaifenesin [Mucinex] 1,200 mg PO BID PRN #20 tablet PRN Reason: Cough Primary Care Physician: Joana Esqueda MD [Primary Care Provider] - Please follow up with your Primary Care Physician in: within 1-2 weeks Test Results: Test results from this visit will be discussed in further detail at your follow- up appointment, if applicable. Please Follow Up With: Vitaly López MD When: within 2 weeks Proposed Discharge Date: 05/18/18
[2018-05-18] MEDS: Ceftriaxone 1 GM/50 ML BAG IV (10:51)
[2018-05-18] MEDS: Famotidine 20 MG Tablet PO (10:54)
[2018-05-18] MEDS: Magnesium Hydroxide 30 ML UDC PO (11:00)
[2018-05-18] MEDS: HYDROcodone Bitartrate/Apap 5/325 Tablet PO (11:00)
--- NOTE | 2018-05-18 11:30 | CASEMGMT ---
RC BOOGIE updated from Eli TATUM that patient qualified for oxygen. CR BOOGIE received script and faxed referral to [facility] [place], patient requested DME company. RC BOOGIE arranged for portable oxygen be delivered to patient's room prior to discharge. CM will continue to monitor this patient and plan for a safe discharge.
[2018-05-18 14:42] LABS: Pathologist Review Reviewed
--- NOTE | 2018-05-19 14:54 | CASEMGMT ---
RC BOOGIE Discharge Follow-Up Phone Call. Lace:??11? Strata: 3 Discharge Date: 05/18/18 Adm Dx:?? PNA, COPD Exac, Possible PE, Sepsis. Attempted discharge follow-up phone call. No answer. Message left for pt to return call if she has any question re: discharge instructions, medications, appts, or any other questions or concerns. Provided call-back # for [phone] Josie TATUM CM. Fidelia AWADN RN CM
== END 2018-05-18 15:06 | disposition home or self-care (01) | DRG 139 ==
LOC: ED 13:51 → MS3 16:13
PROVIDERS: Admitting Provider Family Medicine; Emergency Provider Emergency Medicine; Family Provider Internal Medicine; PCP Internal Medicine; Visit Provider Internal Medicine
DX: J18.9 Pneumonia, unspecified organism (principal); J44.1 Chronic obstructive pulmonary disease with (acute) exacerbation; J44.0 Chronic obstructive pulmonary disease with (acute) lower respiratory infection; I26.99 Other pulmonary embolism without acute cor pulmonale; F17.210 Nicotine dependence, cigarettes, uncomplicated; Z92.21 Personal history of antineoplastic chemotherapy; M54.9 Dorsalgia, unspecified; Z92.3 Personal history of irradiation; J96.01 Acute respiratory failure with hypoxia; Z85.41 Personal history of malignant neoplasm of cervix uteri; Z85.43 Personal history of malignant neoplasm of ovary
CPT/HCPCS: 36415; 71046; 71275; 80048; 83605; 83735; 83880; 84484; 85025; 87070; 87077; 87186; 87205; 87449; 87633; 93005; 93306; 93970; 94640; 94667; 94668; 99281; 99406; J7030; J7040; Q9957; Q9967; A4216